=== PATIENT | female | born 1960 | race Caucasian/White ===

== ENCOUNTER 2020-11-27 16:34 | Outpatient (REF) | payer OTHER, SELFPAY ==
[2020-11-30 16:02] LABS: HPV mRNA E6/E7 Not Detected (Not Detected)
== END 2020-11-27 16:35 | disposition home or self-care (01) ==
LOC: HO.LNP 16:34
PROVIDERS: Visit Provider Internal Medicine
DX: Z12.4 Encounter for screening for malignant neoplasm of cervix (principal)
CPT/HCPCS: 87624; 88142

== ENCOUNTER 2021-08-24 08:47 | Outpatient (REF) | payer OTHER, SELFPAY ==
[2021-08-24 11:41] LABS: Appearance Urine CLEAR; Color Urine YELLOW; Glucose Urine UA NEG (NEG); Leukocyte Esterase Urine 1+ (NEG); Nitrite Urine NEG (NEG); PH 6.5 (5.0-8.0); Specific Gravity - Urine 1.015 (1.005-1.025); Urine Blood NEG (NEG); Urine Ketones NEG (NEG); Urine Protein NEG (NEG-TRACE)
[2021-08-24 11:44] LABS: Hematocrit 41.2 % (37.0-47.0); Hemoglobin 13.6 g/dl (12.0-16.0); Mean Corpuscular Hemoglobin 30.9 pg (27.0-33.0); Mean Corpuscular Volume 93.6 fL (80.0-98.0); Mean Platelet Volume 11.3 fL (9.4-12.3); Platelet Count 253 X10*3/uL (160-400); Red Cell Distribution Width 13.2 % (11.0-16.0); White Blood Count 5.2 X10*3/uL (4.8-10.8)
[2021-08-24 12:06] LABS: Estimated Average Glucose 117 mg/dL; Hemoglobin A1c % 5.7 %
[2021-08-24 12:10] LABS: Mucus Urine TRACE /LPF; Squamous Epithelial Cell Urine TRACE /LPF
[2021-08-24 12:22] LABS: Alanine Aminotransferase 22 U/L (0-31); Albumin Level 4.3 g/dL (3.5-5.0); Alkaline Phosphatase 85 U/L (39-117); Anion Gap 11 (12-20); Aspartate Amino Transferase 22 U/L (5-31); Bilirubin Total 0.4 mg/dL (0.0-1.0); Blood Urea Nitrogen 17 mg/dL (9-16); Calcium 9.3 mg/dL (8.4-10.2); Carbon Dioxide 30 mmol/L (22-29); Chloride 105 mmol/L (96-108); Cholesterol 264 mg/dL; Estimated Glomerular Filt Rate > 60; Glucose Fasting 93 mg/dL (60-99); HDL Cholesterol 70 mg/dL; LDL Cholesterol Calculated 183 mg/dl; Sodium 141 mmol/L (135-145); Total Protein 7.1 g/dL (6.5-8.0); Triglycerides 59 mg/dL
== END 2021-08-24 08:48 | disposition home or self-care (01) ==
LOC: HO.HMGCLDS 08:47
PROVIDERS: PCP Internal Medicine; Visit Provider Internal Medicine
DX: Z00.00 Encounter for general adult medical examination without abnormal findings (principal); M25.50 Pain in unspecified joint; M85.80 Other specified disorders of bone density and structure, unspecified site
CPT/HCPCS: 36415; 80053; 80061; 81001; 83036; 85027; 86431

== ENCOUNTER 2022-05-16 13:52 | Outpatient (REF) | payer OTHER, SELFPAY ==
--- NOTE | ~2022-05-16 | US_ITS ---
EXAMINATION: US PELVIS CLINICAL INFORMATION: Postmenopausal bleeding. COMPARISON: None TECHNIQUE: Ultrasound of the pelvis is performed using both transabdominal and transvaginal transducers along with Doppler. Transvaginal imaging is performed due to inadequate visualization transabdominally. FINDINGS: Uterus: The uterus is anteverted and measures 5.9 x 2.0 x 3.6 cm. The uterus is anteverted. The double wall endometrial thickness is 0.3 mm. The uterus is smooth in contour and has normal myometrial echogenicity. Tiny calcifications are seen within the lower uterine segment, possibly related to minute fibroids. No visible significant fibroid. Adnexa: Both ovaries are nonvisualized. There is no pelvic ascites or fluid collection. US/US pelvic and transvaginal IMPRESSION: The bilateral ovaries are nonvisualized. The examination is otherwise unremarkable.
== END 2022-05-16 13:53 | disposition home or self-care (01) ==
LOC: HO.HMGCX 13:52
PROVIDERS: Visit Provider Internal Medicine
DX: N95.0 Postmenopausal bleeding (principal)
CPT/HCPCS: 76830; 76856

== ENCOUNTER 2023-07-15 12:31 | Outpatient (AMB) | payer OTHER, SELFPAY ==
[2023-07-15 12:32] VITALS: BP 106/62; PULSE 67; O2SAT 100
--- NOTE | 2023-07-15 12:32 | A.OFFPC_ITS ---
Vital Signs 07/15/23 12:32 Height 5 ft 3 in Weight 113 lb BMI 20.0 BP 106/62 Blood Pressure Location Lt brachial Position Sitting Pulse 67 Pulse Source Pulse Oximeter Pulse Oximetry (%) 100 Oxygen Delivery Method Room Air Intake Visit Reasons: 3 month follow up Intake Note: Pt is here today for 3 months follow up visit on labs. Allergies pravastatin Adverse Reaction (Unknown, Verified 04/07/23 13:12) body pain Medication List - Last Reconciled 07/15/23 by Lavonne Bass MD alirocumab (Praluent Pen) 75 mg subcut Q2W aspirin 81 mg PO DAILY baclofen 10 mg PO BEDTIME celecoxib 200 mg PO DAILY flash glucose scanning reader (TDI BasslineStyle Gia 2 [place]) 3 As directed flash glucose sensor (FreeStyle Gia 2 Sensor kit) As directed flu vac qs 2019-(4 yr up) CD mL IM lorazepam 0.5 mg PO DAILY PRN metoprolol succinate ER 12.5 mg (1/2 x 25 mg) PO DAILY rosuvastatin 40 mg PO DAILY semaglutide (Ozempic) 0.5 mg (0.736 mL) subcut QWEEK Tobacco use date assessed: 04/07/23 Dental Screening Dental Screen Date: 07/15/23 Did you have a dental visit in the last 12 months?: Yes Did you have a dental problem in the last 6 months where you did not have access to dental care?: No Was dental information given to patient?: Patient has dentist HPI 3 month follow up HPI Details Pt presents for the follow-up on type 2 diabetes hyperlipidemia cor onary artery disease stable on current medications. 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 Mother No problems noted. Son No problems noted. Daughter No problems noted. Social History Housing: House Alcohol intake: current Alcohol intake frequency: a few times a month Patient Tobacco Use Status: Never used Tobacco e-Cigarette/Vaping Use: Never Used Current occupational status: employed Cognitive needs: No Hearing needs: No Vision needs: Yes Questionnaire Thrive Questionnaire Date Thrive assessed: 11/28/21 JOSH-7 AMB Questionnaire JOSH-7 Date JOSH - 7 assessed: 11/28/21 Source: Developed by Drs. Douglas Fragoso, Sindy Hines, Roger Burgess and colleagues, with an educational dee dee from [employer]. Review of Systems Const All systems reviewed & are unremarkable except as noted in HPI and below Reports no additional complaints Eyes Reports no additional complaints ENT Reports no additional complaints Card Reports no additional complaints Resp Reports no additional complaints GI Reports no additional complaints Reports no additional complaints Physical exam (Primary Care) Vital Signs: Last Vital Signs Pulse 67 07/15/23 12:32 BP 106/62 07/15/23 12:32 Pulse Ox 100 07/15/23 12:32 Oxygen Delivery Method Room Air 07/15/23 12:32 BMI result Body Mass Index 20.0 Tobacco/Smoking Status: Tobacco use Status Tobacco use date assessed 04/07/23 07/15/23 12:34 Patient Tobacco Use Status Never used Tobacco 07/15/23 12:34 e-Cigarette/Vaping Use Never Used 07/15/23 12:34 Thrive Assessment: Date of Thrive Assessment Date Thrive assessed 11/28/21 07/15/23 12:34 Const General: no acute distress Neck Neck: Yes no lymphadenopathy and Yes supple Resp Effort & Inspection: normal respiratory effort Auscultation: clear to auscultation bilaterally Cardio Rhythm: regular rhythm Heart sounds: S1 normal heart sound present and S2 normal heart sound present GI Inspection: Yes normal to inspection Palpation (GI): Soft to palpation Percussion: Yes normal to percussion Auscultation: normal bowel sounds Assessment and Plan Assessment & Plan (1) DM type 2 (diabetes mellitus, type 2): Code(s): E11.9 - Type 2 diabetes mellitus without complications Plan: A1c is 5.5 continue current treatment ADA diet and regular exercise follow-up in 6 months (2) CAD (coronary artery disease): Comment: 2 KATHI stents in mid LCx , balloon OM 1, 2 at [facility], f/u cadiology Code(s): I25.10 - Atherosclerotic heart disease of [place] coronary artery without angina pectoris Plan: Continue current medications (3) Hyperlipidemia: Comment: Not at goal at the maximum dose of Crestor Code(s): E78.5 - Hyperlipidemia, unspecified Plan: Patient will decrease Crestor to 20 mg a day and continue Praluent, check lipid profile in 3 months (4) H/O colonoscopy: Comment: 05/11 Dr. Merry burns , recheck in 10 yrs Code(s): Z98.890 - Other specified postprocedural states Orders: Orders Comprehensive [place]. Panel Fast 3 Months E11.9 - Type 2 diabetes mellitus without complications, E78.5 - Hyperlipidemia, unspecified, I25.10 - Atherosclerotic heart disease of [place] coronary artery without angina pectoris, Z98.890 - Other specified postprocedural states Lipid Panel 3 Months E11.9 - Type 2 diabetes mellitus without complications, E78.5 - Hyperlipidemia, unspecified, I25.10 - Atherosclerotic heart disease of [place] coronary artery without angina pectoris, Z98.890 - Other specified postprocedural states Complete Blood Count Auto Diff 3 Months E11.9 - Type 2 diabetes mellitus without complications, E78.5 - Hyperlipidemia, unspecified, I25.10 - Atherosclerotic heart disease of [place] coronary artery without angina pectoris, Z98.890 - Other specified postprocedural states Hemoglobin A1c 3 Months E11.9 - Type 2 diabetes mellitus without complications, E78.5 - Hyperlipidemia, unspecified, I25.10 - Atherosclerotic heart disease of [place] coronary artery without angina pectoris, Z98.890 - Other specified postp rocedural states CT Coronary Calcium Score Today Comprehensive [place]. Panel Fast 6 Months E11.9 - Type 2 diabetes mellitus without complications, E78.5 - Hyperlipidemia, unspecified, I25.10 - Atherosclerotic heart disease of [place] coronary artery without angina pectoris Lipid Panel 6 Months E11.9 - Type 2 diabetes mellitus without complications, E78.5 - Hyperlipidemia, unspecified, I25.10 - Atherosclerotic heart disease of [place] coronary artery without angina pectoris Hemoglobin A1c 6 Months E11.9 - Type 2 diabetes mellitus without complications, E78.5 - Hyperlipidemia, unspecified, I25.10 - Atherosclerotic heart disease of [place] coronary artery without angina pectoris Complete Blood Count Auto Diff 6 Months E11.9 - Type 2 diabetes mellitus without complications, E78.5 - Hyperlipidemia, unspecified, I25.10 - Atherosclerotic heart disease of [place] coronary artery without angina pectoris Medications: New rosuvastatin 20 mg PO DAILY 90 tabs 1RF blood-glucose sensor (FreeStyle Gia 3 Sensor device) As directed 6 ea 3RF Changed From semaglutide (Ozempic) 0.5 mg (0.736 mL) subcut QWEEK 9 mL 3RF To semaglutide (Ozempic) 0.5 mg (0.736 mL) subcut QWEEK 8.832 mL 3RF 84 days Refilled metoprolol succinate ER 12.5 mg (1/2 x 25 mg) PO DAILY 45 tabs 3RF alirocumab (Praluent Pen) 75 mg subcut Q2W 6 mL 3RF flash glucose sensor (FreeStyle Gia 2 Sensor kit) As directed 6 ea 3RF Coding Level of Care Code Est Pt Level 4 (17849) Diagnoses DM type 2 (diabetes mellitus, type 2) E11.9 CAD (coronary artery disease) I25.10 Hyperlipidemia E78.5 H/O colonoscopy Z98.890
== END 2023-07-15 13:08 | disposition home or self-care (01) ==
PROVIDERS: PCP Internal Medicine; Visit Provider Internal Medicine
DX: E11.9 Type 2 diabetes mellitus without complications (principal); I25.10 Atherosclerotic heart disease of native coronary artery without angina pectoris; E78.5 Hyperlipidemia, unspecified; Z98.890 Other specified postprocedural states
CPT/HCPCS: 99214

== ENCOUNTER 2024-05-10 13:24 | Outpatient (AMB) | payer OTHER, SELFPAY ==
[2024-05-10 13:27] VITALS: BP 106/66; PULSE 72; O2SAT 99; BMI 19.7
--- NOTE | 2024-05-10 13:27 | MHC.PC.OV ---
Vital Signs 05/10/24 13:27 Height 5 ft 3 in Weight 111 lb BMI 19.7 BP 106/66 Blood Pressure Location Lt brachial Position Sitting Pulse 72 Pulse Source Pulse Oximeter Pulse Oximetry (%) 99 Oxygen Delivery Method Room Air Intake Visit Reasons: PE reschd from 04/13/24 Intake Note: Pt is here today for PE. Allergies pravastatin Adverse Reaction (Unknown, Verified 05/10/24 13:30) body pain Medication List - Last Reconciled 05/10/24 by Lavonne Bass MD alirocumab (Praluent Pen) 75 mg subcut Q2W aspirin 81 mg PO DAILY baclofen 10 mg PO BEDTIME blood-glucose sensor (Bit Stew SystemsStyle Gia 3 Sensor device) As directed celecoxib 200 mg PO DAILY flash glucose scanning reader (FreeStyle Gia 2 [place]) 3 As directed flash glucose sensor (FreeStyle Gia 2 Sensor kit) As directed flu vac qs (4 yr up) CD mL IM lorazepam 0.5 mg PO DAILY PRN metoprolol succinate ER 12.5 mg (1/2 x 25 mg) PO DAILY rosuvastatin 20 mg PO DAILY semaglutide (Ozempic) 0.5 mg (0.736 mL) subcut QWEEK zolpidem (Ambien) 5 mg PO BEDTIME PRN Tobacco use date assessed: 05/10/24 Fall risk assessment: No Falls in past year Last assessed Fall Risk: 05/10/24 Dental Screening Dental Screen Date: 05/10/24 Did you have a dental visit in the last 12 months?: Yes Did you have a dental problem in the last 6 months where you did not have access to dental care?: No Was dental information given to patient?: Patient has dentist HPI PE reschd from 04/13/24 HPI Details Patient presents for physical PFS Medical History CAD (coronary artery disease) Angina of effort Exertional chest pain Spinal stenosis at L4-L5 level Hyperlipidemia Trochanteric bursitis Bursitis Skin abnormalities Annual physical exam Hip pain Sciatica Arthralgia Rheumatoid factor positive Osteopenia Degenerative joint disease (DJD) of lumbar spine Surgical History H/O rotator cuff surgery H/O colonoscopy No pertinent past surgical history Family History Father No problems noted. Mother No problems noted. Son No problems noted. Daughter No problems noted. Social History Housing: House Alcohol intake: current Alcohol intake frequency: a few times a month Patient Tobacco Use Status: Never used Tobacco e-Cigarette/Vaping Use: Never Used service: No Current occupational status: employed Cognitive needs: No Hearing needs: No Vision needs: Yes Questionnaire PHQ-9 Over the last 2 weeks, how often have you been bothered by any of the following problems? 1. Little interest or pleasure in doing things: not at all 2. Feeling down, depressed, or hopeless: not at all 3. Trouble falling or staying asleep, or sleeping too much: not at all 4. Feeling tired or having little energy: not at all 5. Poor appetite or overeating: not at all 6. Feeling bad about yourself - or that you are a failure or have let yourself or your family down: not at all 7. Trouble concentrating on things, such as reading the newspaper or watching television: not at all 8. Moving or speaking so slowly that other people could have noticed. Or the opposite - being so fidgety or restless that you have been moving around a lot more than usual: not at all 9. Thoughts that you would be better off or of hurting yourself in some way: not at all Total score: 0 Depression Screening Interpretation: Negative Depression Screening Done: Yes Source: Developed by Drs. Douglas Fragoso, Sindy Hines, Roger Burgess and colleagues, with an educational dee dee from [employer]. Thrive Questionnaire Date Thrive assessed: 05/10/24 I am a: Patient What is your living situation today?: I have a steady place to live Within the past 12 months, did the food you bought not last and you didn't have the money to get more?: Never true Within the past 12 months, did you worry whether your food would run out before you got money to buy more?: Never true Do you have trouble paying for medicines?: No Do you have trouble getting transportation to medical appointments?: No Do you have trouble paying your heating and electricity bill?: No Do you have trouble taking care of your child, family member or friend?: No Do you have trouble with day-to-day activities such as bathing, preparing meals, shopping, managing finances, etc.?: No Are you currently unemployed and looking for a job?: No Are you interested in more education?: No Please select the resources that you would like help with: Housing/Correction Currently or been in a relationship where the following occur: No concerns reported THRIVE Score: 0 AUDIT C Alcohol Use Questionnaire (AUDIT-C) 1. How often do you have a drink containing alcohol?: 2-4 times a month 2. How many drinks containing alcohol do you have on a typical day when you are drinking?: 1 or 2 3. How often do you have six or more drinks on one occasion?: Never Total Score: 2 JOSH-7 AMB Questionnaire JOSH-7 Date JOSH - 7 assessed: 05/10/24 Feeling nervous, anxious, or on edge: 0 = Not at all Not being able to stop or control worryin = Not at all Worrying too much about different things: 0 = Not at all Trouble relaxin = Not at all Being so restless that it is hard to sit still: 0 = Not at all Becoming easily annoyed or irritable: 0 = Not at all Feeling afraid as if something awful might happen: 0 = Not at all Total JOSH-7 score (0-4 normal; 5-9 mild; 10-14 moderate; 15-21 severe): 0 Source: Developed by Drs. Douglas Fragoso, Sindy Hines, Roger Burgess and colleagues, with an educational dee dee from [employer]. Review of Systems Const All systems reviewed & are unremarkable except as noted in HPI and below ENT Reports no additional complaints Card Reports no additional complaints Resp Reports no additional complaints GI Reports no additional complaints Reports no additional complaints Physical exam (Primary Care) Vital Signs: Last Vital Signs Pulse 72 05/10/24 13:27 BP 106/66 05/10/24 13:27 Pulse Ox 99 05/10/24 13:27 Oxygen Delivery Method Room Air 05/10/24 13:27 BMI result Body Mass Index 19.7 Tobacco/Smoking Status: Tobacco use Status Tobacco use date assessed 05/10/24 05/10/24 13:33 Patient Tobacco Use Status Never used Tobacco 05/10/24 13:33 e-Cigarette/Vaping Use Never Used 05/10/24 13:27 PHQ-9: PHQ-9 Score PHQ-9: Total score 0 05/10/24 13:35 Depression Screening Interpretation: Negative Thrive Assessment: Date of Thrive Assessment Date Thrive assessed 05/10/24 05/10/24 13:35 Currently or been in a relationship where the following occur: No concerns reported Const General: no acute distress HENMT Head: Yes normal to inspection Ears: hearing grossly normal bilaterally Face and sinus: Yes normal facial exam Eyes General: appearance normal, both eyes and all related structures Neck Neck: Yes no lymphadenopathy and Yes supple Resp Effort & Inspection: normal respiratory effort Auscultation: clear to auscultation bilaterally Cardio Rhythm: regular rhythm Heart sounds: S1 normal heart sound present and S2 normal heart sound present GI Inspection: Yes normal to inspection Palpation (GI): Soft to palpation Percussion: Yes normal to percussion Auscultation: normal bowel sounds Assessment and Plan Assessment & Plan (1) DM type 2 (diabetes mellitus, type 2): Code(s): E11.9 - Type 2 diabetes mellitus without complications Plan: A1c was 5.7 in January, ADA diet regular physical activity discussed with the patient Ozempic will be increased to 1 mg weekly and patient will continue to monitor her glucose by Gia 2 (2) CAD (coronary artery disease): Comment: 2 KATHI stents in mid LCx , balloon OM 1, 12/10/21 at [facility], f/u cadiology Code(s): I25.10 - Atherosclerotic heart disease of [place] coronary artery without angina pectoris Plan: Continue current medications follow-up with Cardiology (3) Hyperlipidemia: Comment: Not at goal at the maximum dose of Crestor Code(s): E78.5 - Hyperlipidemia, unspecified Plan: Patient has been taking Praluent and Crestor have lipid profile checked (4) Osteopenia: Comment: DEXA 08/2016 Code(s): M85.80 - Other specified disorders of bone density and structure, unspecified site Plan: Check DEXA, continue vitamin-D and regular exercise Orders: Orders Comprehensive [place]. Panel Fast Today E11.9 - Type 2 diabetes mellitus without complications, E78.5 - Hyperlipidemia, unspecified, I25.10 - Atherosclerotic heart disease of [place] coronary artery without angina pectoris Hemoglobin A1c 6 Months E11.9 - Type 2 diabetes mellitus without complications, E78.5 - Hyperlipidemia, unspecified, I25.10 - Atherosclerotic heart disease of [place] coronary artery without angina pectoris Complete Blood Count Auto Diff 6 Months E11.9 - Type 2 diabetes mellitus without complications, E78.5 - Hyperlipidemia, unspecified, I25.10 - Atherosclerotic heart disease of [place] coronary artery without angina pectoris Lipid Panel Today E11.9 - Type 2 diabetes mellitus without complications, E78.5 - Hyperlipidemia, unspecified, I25.10 - Atherosclerotic heart disease of [place] coronary artery without angina pectoris Hemoglobin A1c Today E11.9 - Type 2 diabetes mellitus without complications, E78.5 - Hyperlipidemia, unspecified, I25.10 - Atherosclerotic heart disease of [place] coronary artery without angina pectoris Microalbumin, Random (w Creat) Today E11.9 - Type 2 diabetes mellitus without complications, E78.5 - Hyperlipidemia, unspecified, I25.10 - Atherosclerotic heart disease of [place] coronary artery without angina pectoris Complete Blood Count Auto Diff Today E11.9 - Type 2 diabetes mellitus without complications, E78.5 - Hyperlipidemia, unspecified, I25.10 - Atherosclerotic heart disease of [place] coronary artery without angina pectoris XR DEXA axial skeleton Today M85.80 - Other specified disorders of bone density and structure, unspecified site Comprehensive [place]. Panel Fast 6 Months E11.9 - Type 2 diabetes mellitus without complications, E78.5 - Hyperlipidemia, unspecified, I25.10 - Atherosclerotic heart disease of [place] coronary artery without angina pectoris Lipid Panel 6 Months E11.9 - Type 2 diabetes mellitus without complications, E78.5 - Hyperlipidemia, unspecified, I25.10 - Atherosclerotic heart disease of [place] coronary artery without angina pectoris Medications: New Ozempic (semaglutide) 1 mg (0.75 mL) subcut QWEEK 9 mL 3RF NS Refilled zolpidem (Ambien) 5 mg PO BEDTIME PRN 30 tabs 0RF insomnia metoprolol succinate ER 12.5 mg (1/2 x 25 mg) PO DAILY 45 tabs 3RF alirocumab (Praluent Pen) 75 mg subcut Q2W 6 mL 3RF Discontinued semaglutide (Ozempic) Discontinued Reason: Doctor's Order 0.5 mg (0.736 mL) subcut QWEEK 9 mL 3RF Coding Level of Care Code Est Pt Prev Care 40-64y(18011) Diagnoses DM type 2 (diabetes mellitus, type 2) E11.9 CAD (coronary artery disease) I25.10 Hyperlipidemia E78.5 Osteopenia M85.80
== END 2024-05-10 15:37 | disposition home or self-care (01) ==
PROVIDERS: PCP Internal Medicine; Visit Provider Internal Medicine
DX: Z00.00 Encounter for general adult medical examination without abnormal findings (principal); E11.9 Type 2 diabetes mellitus without complications; I25.10 Atherosclerotic heart disease of native coronary artery without angina pectoris; E78.5 Hyperlipidemia, unspecified; M85.80 Other specified disorders of bone density and structure, unspecified site
CPT/HCPCS: 99396

== ENCOUNTER 2024-07-08 09:05 | Outpatient (REF) | payer OTHER, SELFPAY ==
[2024-07-08 10:10] LABS: MANUAL DIFF FLAG NO
[2024-07-08 10:26] LABS: Basophils Percent Auto 0.3 % (0-2); Eosinophils Absolute Auto 0.1 X10*3/uL (0.0-0.4); Hematocrit 38.9 % (37.0-47.0); Hemoglobin 13.1 g/dl (12.0-16.0); Imm Gran Abs Auto 0.02 X10*3/uL (0.00-0.03); Imm Gran Pct Auto 0.3 % (0.0-0.4); Lymphocytes Absolute Auto 1.6 X10*3/uL (1.2-4.9); Lymphocytes Percent Auto 26.7 % (20-40); Mean Corpuscular HGB Conc 33.7 g/dl (31.0-35.0); Mean Corpuscular Hemoglobin 31.2 pg (27.0-33.0); Mean Corpuscular Volume 92.6 fL (80.0-98.0); Mean Platelet Volume 10.4 fL (9.4-12.3); Monocytes Absolute Auto 0.5 X10*3/uL (0.1-1.2); Monocytes Percent Auto 8.8 % (2-11); Neutrophils Absolute Auto 3.8 x10*3/uL (2.0-8.3); Neutrophils Percent Auto 61.9 % (45-73); Platelet Count 244 X10*3/uL (160-400); Red Cell Distribution Width 12.9 % (11.0-16.0); White Blood Count 6.2 X10*3/uL (4.8-10.8)
[2024-07-08 10:35] LABS: Estimated Average Glucose 108 mg/dL; Hemoglobin A1c % 5.4 % (<6.0)
[2024-07-08 10:58] LABS: Creatinine Urine 94.79 mg/dL; Microalbum/Creatinine Ratio Ur 17.9 ug/mg cr (<30)
[2024-07-08 11:04] LABS: Alanine Aminotransferase 19 U/L (0-31); Albumin Level 4.1 g/dL (3.5-5.0); Alkaline Phosphatase 65 U/L (39-117); Anion Gap 8 (12-20); Aspartate Amino Transferase 20 U/L (5-31); Bilirubin Total 0.5 mg/dL (0.0-1.0); Blood Urea Nitrogen 13 mg/dL (9-16); Calcium 9.6 mg/dL (8.4-10.2); Carbon Dioxide 31 mmol/L (22-29); Chloride 106 mmol/L (96-108); Cholesterol 105 mg/dL (<200); Estimated Glomerular Filt Rate > 60; Glucose Fasting 84 mg/dL (60-99); HDL Cholesterol 67 mg/dL (>40); LDL Cholesterol Calculated 31 mg/dL (<100); Sodium 141 mmol/L (135-145); Triglycerides 35 mg/dL (<150)
== END 2024-07-08 09:06 | disposition home or self-care (01) ==
LOC: HO.HMGCLDS 09:05
PROVIDERS: PCP Internal Medicine; Visit Provider Internal Medicine
DX: E11.9 Type 2 diabetes mellitus without complications (principal); I25.10 Atherosclerotic heart disease of native coronary artery without angina pectoris; E78.5 Hyperlipidemia, unspecified; Z98.890 Other specified postprocedural states
CPT/HCPCS: 36415; 80053; 80061; 82043; 82570; 83036; 85025

== ENCOUNTER 2024-10-18 13:54 | Outpatient (AMB) | payer OTHER, SELFPAY ==
--- OUTSIDE RECORDS SUMMARY | 2024-10-18 13:56 | XMS_ITS | Continuity of Care Document ---
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 Refills 3, Maintenance, 12/11/21 10:31:00 AM EST, Route to Pharmacy Electronically, [facility], Partial fill upon patient request if the prescription is for a schedule II opioid drug., 161, cm, 12/11/21 9:29:00 EST, Height, 58, kg, 12/08/21 0:57:00 EST, Dry Weight Start Date: 12/11/21 Status: Ordered Quantity: 30.0 Unit: tablet Repeat number: 4 biotin biotin, 10,000 mcg, By Mouth, Daily, Refills 0, Maintenance, 07/17/20 4:05:00 PM EDT, Supply Start Date: 07/17/20 Status: Ordered Repeat number: 1 Co Q-10 = 300 mg, By Mouth, Daily, 0 Refills, Maintenance, 12/07/21 8:48:00 PM EST, Partial fill upon patient request if the prescription is for a schedule II opioid drug. Start Date: 12/07/21 Status: Ordered Repeat number: 1 Melatonin = 10 mg, By Mouth, Daily at bedtime, 0 Refills, Maintenance, 07/17/20 4:06:00 PM EDT Start Date: 07/17/20 Stop Date: 01/06/22 Status: Ordered Repeat number: 1 metoprolol 25 mg oral tablet 12.5 mg, 0.5, tablet, By Mouth, Daily, # 180 tablet, Refills 0, Maintenance, 01/28/23 12:21:00 PM EDT, Partial fill upon patient request if the prescription is for a schedule II opioid drug. Start Date: 01/28/23 Status: Ordered Quantity: 180.0 Unit: tablet Repeat number: 1 Multivitamin By Mouth, Daily, 0 Refills, Maintenance, 01/22/10 4:03:08 PM EDT Start Date: 01/22/10 Status: Ordered Repeat number: 1 rosuvastatin 20 mg oral tablet 1 tablet = 20 mg, By Mouth, Daily, # 30 tablet, 3 Refills, Maintenance, 12/11/21 10:31:00 AM EST, Tablet, [facility], Partial fill upon patient request if the prescription is for a schedule II opioid drug., 161, cm, 12/11/21 9:29:00 EST, Height, 58, kg, 12/08/21 0:57:00 EST, Dry Weight Start Date: 12/11/21 Status: Ordered Quantity: 30.0 Unit: tablet Repeat number: 4 vitamin d vitamin d, 2,000 units, By Mouth, Daily, Refills 0, Maintenance, 07/17/20 4:05:00 PM EDT, Supply Start Date: 07/17/20 Status: Ordered Repeat number: 1 Problem List Condition Confirmation Course Effective Dates Status [facility] Informant Chronic back pain Confirmed Active Osteopenia Confirmed Active UI - Urinary incontinence Confirmed Active Social History Social History Type Response Smoking Status Never smoker entered on: 12/24/17 Sex Sex Representation Female (finding) Patient Care team information Care Team Personnel Name: Lavonne Bass MD Position: [facility] Physician - Primary Care Member Role: PCP Address: [address], [place] [id number] Telecom: Name: Evan Cross RN Position: [facility] RN Member Role: Primary Care Nurse Name: Lee ROBLES, Traci Tello Position: [facility] Outreach Member Role: Lifetime Consulting Physician Address: [address] [place] [phone] [place] Telecom: Name: Audrey Woodson LPN Position: [facility] AMB Nurse Member Role: Primary Care Nurse Care Team Related Persons Name: ABHAY FISHER Insurance Providers Guarantor name: NICO [facility] Information #: 1 Payer: [employer] Member Number: NA Policy Number: NA Group Number: NA
--- OUTSIDE RECORDS SUMMARY | 2024-10-18 13:57 | XMS_ITS ---
Author Organization [employer] Address [address] [place] [phone] Care Team Providers Care Geothermal Hvac Technician Name Role Phone TRACI HOWARD Primary Care Provider ALLERGIES No Known Allergies RESULTS Component Value Reference Range Notes ANALYZER(TM)FERMIN, IFA WITH RE FLEX TITER/PATTERN, SYSTEMIC AUTOIMMUNE PANEL 1 ([id number]) Reviewed date:03/31/2024 01:40:01 PM Interpretation: Performing Lab:EZ, [email or web address],[address] [facility] Brittni Zamarripa MD,PhD,ASHLEY Notes/Report: NON-FASTING; NON-FASTING FERMIN SCREEN, IFA NEGATIVE NEGATIVE FERMIN IFA is a first line screen for detecting the presence of up to approximately 150 autoantibodies in various autoimmune diseases. A negative FERMIN IFA result suggests an FERMIN-associated autoimmune disease is not present at this time, but is not definitive. If there is high clinical suspicion for Sjogren's syndrome, testing for anti-SS-A/Ro antibody should be considered. Anti-Amna-1 antibody should be considered for clinically suspected inflammatory myopathies. AC-0: Negative International Consensus on FERMIN Patterns https://doi.org/10.1515/cclm -2945-8835 For additional information, please refer to http://education.BFKWo 3dplusme.com/faq/VIT404 (This link is being provided for information/educational purposes only.) DNA AB (DS) CRITHIDIA,IFA NEGATIVE NEGATIVE CHROMATIN (NUCLEOSOMAL) ANTIBODY <1.0 NEG <1.0 NEGATIVE AI SM ANTIBODY <1.0 NEG <1.0 NEGATIVE AI SM/FOOD CRITIC ANTIBODY <1.0 NEG <1.0 NEGATIVE AI FOOD CRITIC ANTIBODY <1.0 NEG <1.0 NEGATIVE AI SJOGREN'S ANTIBODY (SS-A) <1.0 NEG <1.0 NEGATIVE A I SJOGREN'S ANTIBODY (SS-B) <1.0 NEG <1.0 NEGATIVE A I SCL-70 ANTIBODY <1.0 NEG <1.0 NEGATIVE AI AMNA-1 ANTIBODY <1.0 NEG <1.0 NEGATIVE AI CENTROMERE B ANTIBODY <1.0 NEG <1.0 NEGATIVE AI COMPLEMENT COMPONENT C3C 120 83-193 mg/dL COMPLEMENT COMPONENT C4C 21 15-57 mg/dL CARDIOLIPIN AB (IGA) 4.7 Value Interpretation ----- <20.0 Antibody not detected > or = 20.0 Antibody detected CARDIOLIPIN AB (IGG) <2.0 Value Interpretation ----- <20.0 Antibody not detected > or = 20.0 Antibody detected CARDIOLIPIN AB (IGM) <2.0 Value Interpretation ----- <20.0 Antibody not detected > or = 20.0 Antibody detected B2 GLYCOPROTEIN I (IGA)AB 3.9 Value Interpretation ----- <20.0 Antibody not detected > or = 20.0 Antibody detected B2 GLYCOPROTEIN I (IGG)AB <2.0 Value Interpretation ----- <20.0 Antibody not detected > or = 20.0 Antibody detected B2 GLYCOPROTEIN I (IGM)AB <2.0 The antiphospholipid antibody syndrome (APS) is a clinical-pathologic correlation that includes a clinical event (e.g. arterial or venous thrombosis, morbidity) and persistent positive antiphospholipid antibodies (IgM, IgG Cardiolipin or b2GPI antibodies greater than the 99th percentile; or a lupus anticoagulant). International consensus guidelines for APS suggest waiting at least 12 weeks before retesting to confirm antibody persistence. The Systemic Lupus International Collaborating [facility] immunological classification criteria for systemic lupus erythematosus (SLE) include testing for isotype IgA, which has yet to be incorporated into APS criteria. Low level antiphospholipid antibodies may sometimes be detected in the setting of infection, drug therapy or aging. For additional information, please refer to http://education.[employer] Automotivediagno 3dplusme.com/faq/YCS679 (This link is being provided for informational/educational purposes only.) Value Interpretation ----- <20.0 Antibody not detected > or = 20.0 Antibody detected RHEUMATOID FACTOR (IGA) 9 Reference Range: <=6 NEGATIVE >6 POSITIVE RHEUMATOID FACTOR (IGG) 6 Reference Range: <=6 NEGATIVE >6 POSITIVE RHEUMATOID FACTOR (IGM) 12 Reference Range: <=6 NEGATIVE >6 POSITIVE CYCLIC CITRULLINATED PEPTIDE (CCP) AB (IGG) <16 Reference Range: NEGATIVE: <20 WEAK POSITIVE: 20-39 MODERATE POSITIVE: 40-59 STRONG POSITIVE >59 MUTATED CITRULLINATED VIMENTIN (MCV) AB <20 <20 U/mL Anti-mutated citrullinated vimentin antibody may be used as a second-line marker of rheumatoid arthritis, in addition to rheumatoid factor and anti-cyclic citrullinated peptide (CCP). THYROID PEROXIDASE ANTIBODIES 1 <9 IU/mL DEMENTIA PANEL, RESTORE() ([id number]) Reviewed date:03/22/2024 12:20:02 PM Interpretation: Performing Lab:NL2, [email or web address] [address] [place], [place] [id number] Alva Alexander Notes/Report: NON-FASTING; NON-FASTING GLUCOSE 89 65-99 mg/dL Fasting reference interval UREA NITROGEN (BUN) 17 7-25 mg/dL CREATININE 0.62 0.50-1.05 mg/dL EGFR 99 > OR = 60 mL/min/1.73m2 BUN/CREATININE RATIO SEE NOTE: 6-22 (calc) Not Reported: BUN and Creatinine are within reference range. SODIUM 137 135-146 mmol/L POTASSIUM 5.1 3.5-5.3 mmol/L CHLORIDE 102 98-110 mmol/L CARBON DIOXIDE 28 20-32 mmol/L CALCIUM 9.9 8.6-10.4 mg/dL PROTEIN, TOTAL 6.8 6.1-8.1 g/dL ALBUMIN 4.3 3.6-5.1 g/dL GLOBULIN 2.5 1.9-3.7 g/dL (calc) ALBUMIN/GLOBULIN RATIO 1.7 1.0-2.5 (calc) BILIRUBIN, TOTAL 0.5 0.2-1.2 mg/dL ALKALINE PHOSPHATASE 59 37-153 U/L AST 19 10-35 U/L ALT 17 6-29 U/L WHITE BLOOD CELL COUNT 4.7 3.8-10.8 Thousand/ uL RED BLOOD CELL COUNT 4.38 3.80-5.10 Million/uL HEMOGLOBIN 13.5 11.7-15.5 g/dL HEMATOCRIT 41.8 35.0-45.0 % MCV 95.4 80.0-100.0 fL MCH 30.8 27.0-33.0 pg MCHC 32.3 32.0-36.0 g/dL RDW 12.4 11.0-15.0 % PLATELET COUNT 244 140-400 Thousand/uL MPV 11.3 7.5-12.5 fL ABSOLUTE NEUTROPHILS 2834 1108-0330 cells/uL ABSOLUTE LYMPHOCYTES 9190 302-0230 cells/uL ABSOLUTE MONOCYTES 362 200-950 cells/uL ABSOLUTE EOSINOPHILS 80 15-500 cells/uL ABSOLUTE BASOPHILS 19 0-200 cells/uL NEUTROPHILS 60.3 LYMPHOCYTES 29.9 MONOCYTES 7.7 EOSINOPHILS 1.7 BASOPHILS 0.4 TSH 1.18 0.40-4.50 mIU/L VITAMIN B12 5357 241-0561 pg/mL FOLATE, SERUM >24.0 Reference Range Low: <3.4 Borderline: 3.4-5.4 Normal: >5.4 COMMENT If a patient with suspected dementia has a history of risk factors for sexually transmitted infections, blood testing for syphilis and human immunodeficiency virus (HIV) infection should be considered. For information on advanced diagnostic testing for dementia including Alzheimer's Disease please click on Frequently Asked Questions (FAQs) or visit the following link http://education.AfterSteps.[employer]/faq/FAQ88 Enhanced report to follow. REASON FOR VISIT F/U CHECK IN MEDICATIONS Medication SIG (Take, Route, Frequency, Duration) Notes Start Date End Date Status CoQ10 300mg QD Active FreeStyle Gia 3 Sensor - as directed for 90 days Active Rosuvastatin Calcium 20 MG 1 tablet Orally Once a day Active Metoprolol Succinate ER 25 MG 1 tablet Orally Once a day Takes 1/2 daily (12.5mg) Active Aspirin 81 81 MG 1 tablet Orally Once a day Active Baclofen 10 MG 1 tablet as needed Orally Twice a day Takes 1 QHS PRN Active Biotin 1 QD Active Vitamin D3 50 MCG (2000 UT) 1 capsule Orally Once a day Active Stress B Complex/Antioxid/Zinc - as directed Orally Active Melatonin 10 MG as directed Orally Active Alirocumab 75 MG/ML as directed Subcutaneous Active Ozempic (0.25 or 0.5 MG/DOSE) 2 MG/3ML as directed Subcutaneous Active SOCIAL HISTORY Tobacco Use: Social History Observation Description Date Details (start date - stop date) Never Smoker NA - NA Sex Assigned At : Social History Observation Description Sex Assigned At Unknown Tobacco Use/Smoking Question Answer Notes Tobacco use: nonsmoker Section Notes: Lives in [place] with hus band. Encounters Encounter Location Date Provider Diagnosis [address] [phone] 03/11/2024 TRACI HOWARD Encounter to discuss test results Z71.2 and Inflammatory polyarthropathy M06.4 ASSESSMENTS Encounter Date Diagnosis Assessment Notes Treatment Notes Treatment Clinical Notes Section Notes 03/11/2024 Encounter to discuss test results (ICD-10 - Z71.2) All labs were reviewed and the results were explained to the patient in detail. Total time with patient >30 minutes which includes education and coordination of care. 03/11/2024 Inflammatory polyarthropathy (ICD-10 - M06.4) PLAN OF TREATMENT Treatment Notes Assessment Notes Encounter to discuss test results All la bs were reviewed and the results were explained to the patient in detail. Total time with patient >30 minutes which includes education and coordination of care. Next Appt Details Follow Up: prn, Reason: will consider membership Progress Notes * NICO FISHERDOB:[birth year] (64 yo F)Acc No.[id number]:03/11/2024 Progress Note Patient:??INEZKIRK NICO Provider:??Traci Howard DNP :1960?Age:64 Y?Sex:Fe male Date:03/11/2024 Phone: Address:[address] [place] [phone] Subjective: * Chief Complaints: * ?F/U CHECK IN * HPI: ?Patient Care Team:?Ultrasound Tech:??Dr. Bonita Mclean @ [address] [place] [address].? Providers/Specialists: Dr. Booker - Retinal Specialist ?Dr. Nati Paz - Chiropractor. ?New Patient Visit:? The patient consents to HIPAA compliant telehealth visit using a real time video platform within our EHR. The provider is located in the office and the patient is in their home for the duration of the visit. ?Visit info:? Ncio presents by video today for a telehealth wellness check in. * ROS:?General / Constitutional:?Patient denies??change in appetite, fatigue, headache.?Allergy / Immunology:?Patient denies??congestion, cough, sneezing.?Ophthalmologic:?Patient denies??double vision, loss of vision.?ENT:?Patient denies??ear pain, hoarseness, nasal congestion, ringing in the ears, scratchy throat.?Respiratory:?Patient denies??chest pain, cough, shortness of breath, wheezing.?Cardiovascular:?Patient denies??chest pain, chest pain with exertion, difficulty laying flat, dyspnea on exertion.?Gastrointestinal:?Patient denies??abdominal pain, blood in stool, constipation, diarrhea, heartburn, nausea.?Musculoskeletal:?Patient denies??joint stiffness, leg swelling, muscle aches, neck pain.?Skin:?Patient denies??changing moles, dry skin.?Neurologic:?Patient denies??confusion, dizziness, headache, gait abnormality.?Psychiatric:?Patient denies??anxiety, loss of appetite, depressed mood.? 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 * Community Health Advocate History:?Menstrual history: ?Age of Menarche:??12 ?Age of Menopause:??45 ?Last pap smear date??2021 @ prior PCP, normal per pt..?Last mammogram date??2021 @ [facility], normal per pt..?? * OB History:? History:?Total pregnancies:??2 ?Full-term pregnancies:??2 * Surgical History:??Bilateral Carpal Tunnel 1998-2000Bunioinectomy & Hammer Toe 2007 & 2018Rt. Rotator Cuff Repair 2019Appendectomy 1972Tonsilectomy 1989Angioplasty w/2 Stents 2021 * Hospitalization/Major Diagno stic Procedure:??Angioplasty & 2 Stents @ [facility] 2021 * Family History:??Father: dec eased 65 yrs, CAD & CHF.??Mother: 86 yrs, Diabetes, Rheaumatoid Arthritis,.??Maternal Grandfather: , Diabetes.??Maternal Grandmother: , Unknown health history.??Brother: alive, No health concerns.??Sister: alive, MS, Spinal Tumor, Neuroma.??Sister #2: alive, No health concerns.??Sister #3: alive, No health concerns.??Sister #4: alive, No health concerns.??1 son(s) , 1 daughter(s) - healthy. .?? * Social History:?Tobacco Use:?Tobacco Use/Smoking?Tobacco use:??nonsmoker ?Drugs/Alcohol:?Do you drink alcohol?: Yes, Socially. ?Lives in [place] with . * Medications:??TakingAlirocum ab 75 MG/ML Solution Auto-injector as directed Subcutaneous Ozempic (0.25 or 0.5 MG/DOSE) 2 MG/3ML Solution Pen-injector as directed Subcutaneous Stress B Complex/Antioxid/Zinc - Tablet as directed Orally Melatonin 10 MG Capsule as directed Orally Baclofen 10 MG Tablet 1 tablet as needed Orally Twice a day , Notes to Pharmacist: Takes 1 QHS PRNBiotin , Notes to Pharmacist: 1 QDVitamin D3 50 MCG (1999 UT) Capsule 1 capsule Orally Once a day CoQ10 , Notes to Pharmacist: 300mg QDAspirin 81 81 MG Tablet Delayed Release 1 tablet Orally Once a day Rosuvastatin Calcium 20 MG Tablet 1 tablet Orally Once a day Metoprolol Succinate ER 25 MG Tablet Extended Release 24 Hour 1 tablet Orally Once a day , Notes to Pharmacist: Takes 1/2 daily (12.5mg)FreeStyle Gia 3 Sensor - Miscellaneous as directed Medication List reviewed and reconciled with the patientTaking Alirocumab 75 MG/ML Solution Auto-injector as directed Subcutaneous Taking Ozempic (0.25 or 0.5 MG/DOSE) 2 MG/3ML Solution Pen-injector as directed Subcutaneous Taking Stress B Complex/Antioxid/Zinc - Tablet as directed Orally Taking Melatonin 10 MG Capsule as directed Orally Taking Baclofen 10 MG Tablet 1 tablet as needed Orally Twice a day , Notes to Pharmacist: Takes 1 QHS PRNTaking Biotin , Notes to Pharmacist: 1 QDTaking Vitamin D3 50 MCG (2000 UT) Capsule 1 capsule Orally Once a day Taking CoQ10 , Notes to Pharmacist: 300mg QDTaking Aspirin 81 81 MG Tablet Delayed Release 1 tablet Orally Once a day Taking Rosuvastatin Calcium 20 MG Tablet 1 tablet Orally Once a day Taking Metoprolol Succinate ER 25 MG Tablet Extended Release 24 Hour 1 tablet Orally Once a day , Notes to Pharmacist: Takes 1/2 daily (12.5mg)Taking FreeStyle Gia 3 Sensor - Miscellaneous as directed Medication List reviewed and reconciled with the patient * Allergies:??N.K.D.A.no[Aller gies Verified] Objective: * Vitals:??BP: Not Taken - Tel [facility]. * Examination: ?General Examination: ?General appearance:??voice is clear, no distress noted, speaking in full sentences with good judgement and no audible SOB.?Neurologic:??alert and oriented.?Psych:??alert and oriented x 3, with good judgement and insight, speech is clear and coherent, thought process is logical and goal directed without suidical ideation or delusions.? Assessment: * Assessment: 1.??Inflammatory polyarthrop athy - M06.4 (Primary)??2.??Encounter to discuss test results - Z71.2?? Plan: * Treatment: 2.??Encounter to discuss fausto t results?? Notes: All labs were reviewed and the results were explained to the patient in detail. Total time with patient >30 minutes which includes education and coordination of care. ? * Labs:?? * ?Lab: DEMENTIA SHY NOYOLA() ([id number]) * Procedure Codes:?? * Preventive Medicine:?Last CPE: 2021 @ former PCP ?Last Pap; 2021 w/PCP, normal per pt. ?Mammo: Fall 2021 @ [facility] ?DEXA: q 2 years, due 2022 @ [address] ?Colonoscopy: Due 01/2023 @ [facility] ?Endoscopy: Yes, approx. 2009 GERD sx's, +for HPylor & treated ?Covid Vac: Yes & boosters ?Flu Vac: Yes ?PV: No Shingles: No. * Follow Up:??prn (Reason: jt l consider membership) * Billing Information: * Visit Code:?? 45387 Office Visit, Est Pt., Level 4. * Procedure Codes:?? * Sign off status: Completed true * Provider:??Traci Howard DNP Date:??0 03/11/2024 History and Physical Notes * HPI (History of Present Illness) Category Sub-Category Detail Notes Category Not es Patient Care Team Ultrasound Tech: Dr. Bonita Mclean @ [address] [place] [address] Providers/Specialist s: Dr. Booker - Retinal Specialist Dr. Nati Paz - Chiropractor Visit tammy Cantu presents by video today for a telehealth wellness check in. New Patient Visit The jose owens consents to HIPAA compliant telehealth visit using a real time video platform within our EHR. The provider is located in the office and the patient is in their home for the duration of the visit. Examination Category Sub-Category Detail Notes Category Not es General Examination General appearance: voice is clear, no distress noted, speaking in full sentences with good judgement and no audible SOB Neurologic: alert and oriented Psych: alert and oriented x 3, with good judgement and insight, speech is clear and coherent, thought process is logical and goal directed without suidical ideation or delusions
--- OUTSIDE RECORDS SUMMARY | 2024-10-18 13:57 | XMS_ITS | Patient Health Record ---
Author Organization [employer] Address [address] [place] [phone] Care Team Providers Care Radio Artist Name Role Phone KEVIN YEE Primary Care Provider ALLERGIES No Known Allergies RESULTS Component Value Reference Range Notes ANALYZER(TM)FERMIN, IFA WITH RE FLEX TITER/PATTERN, SYSTEMIC AUTOIMMUNE PANEL 1 ([id number]) Reviewed date:03/31/2024 01:40:01 PM Interpretation: Performing Lab:EZ, [facility],[address] [facility] Brittni Zamarripa MD,PhD,ASHLEY Notes/Report: NON-FASTING; NON-FASTING FERMIN [...] testing for anti-SS-A/Ro antibody should be considered. Anti-Noah-1 antibody should be considered for clinically suspected inflammatory myopathies. AC-0: Negative International Consensus on FERMIN Patterns https://doi.org/10.1515/cclm -5861-7548 For additional information, please refer to http://education.[employer].com/faq/NQQ089 (This link is being provided for information/educational purposes only.) DNA AB (DS) CRITHIDIA,IFA NEGATIVE NEGATIVE CHROMATIN (NUCLEOSOMAL) ANTIBODY <1.0 NEG <1.0 NEGATIVE AI SM ANTIBODY <1.0 NEG <1.0 NEGATIVE AI SM/BACK LINE COOK ANTIBODY <1.0 NEG <1.0 NEGATIVE AI BACK LINE COOK ANTIBODY <1.0 NEG <1.0 NEGATIVE AI SJOGREN'S ANTIBODY (SS-A) <1.0 NEG <1.0 NEGATIVE A I SJOGREN'S ANTIBODY (SS-B) <1.0 NEG <1.0 NEGATIVE A I SCL-70 ANTIBODY <1.0 NEG <1.0 NEGATIVE AI NOAH-1 ANTIBODY <1.0 NEG <1.0 NEGATIVE AI CENTROMERE [...] aging. For additional information, please refer to http://education.quest[facility].com/faq/EFI136 (This link is being provided for informational/educational [...] PEROXIDASE ANTIBODIES 1 <9 IU/mL DEMENTIA PANEL, RESTOREU() ([id number]) Reviewed date:03/22/2024 12:20:02 PM Interpretation: Performing Lab:NL2, [facility] [address] [place], [place] [id number] Alva Alexadner Notes/Report: NON-FASTING; NON-FASTING GLUCOSE 89 65-99 mg/dL [...] MPV 11.3 7.5-12.5 fL ABSOLUTE NEUTROPHILS 2834 4429-3533 cells/uL ABSOLUTE LYMPHOCYTES 0698 352-6396 cells/uL ABSOLUTE MONOCYTES 362 200-950 cells/uL ABSOLUTE EOSINOPHILS 80 15-500 cells/uL ABSOLUTE BASOPHILS 19 0-200 cells/uL NEUTROPHILS 60.3 LYMPHOCYTES 29.9 MONOCYTES 7.7 EOSINOPHILS 1.7 BASOPHILS 0.4 TSH 1.18 0.40-4.50 mIU/L VITAMIN B12 8124 327-3722 pg/mL FOLATE, SERUM >24.0 Reference Range Low: [...] Questions (FAQs) or visit the following link http://education.[employer]/faq/FAQ88 Enhanced report to follow. REASON FOR REFERRAL No Information MEDICATIONS Medication SIG (Take, Route, Frequency, Duration) Notes Start Date End Date Status Baclofen 10 MG 1 tablet as needed Orally Twice a day Takes 1 QHS PRN Active Biotin 1 QD Active Vitamin D3 50 MCG (1999) 1 capsule Orally Once a day Active CoQ10 300mg QD Active Alirocumab 75 MG/ML as directed Subcutaneous Active FreeStyle Gia 3 Sensor - as directed for 90 days Active Ozempic (0.25 or 0.5 MG/DOSE) 2 MG/3ML as directed Subcutaneous Active Stress B Complex/Antioxid/Zinc - as directed Orally Active Melatonin 10 MG as directed Orally Active Rosuvastatin Calcium 20 MG 1 tablet Orally Once a day Active Metoprolol Succinate ER 25 MG 1 tablet Orally Once a day Takes 1/2 daily (12.5mg) Active Aspirin 81 81 MG 1 tablet Orally Once a day Active SOCIAL HISTORY Tobacco Use: Social History Observation Description Date Details (start date - stop date) Never Smoker NA - NA Sex Assigned At : Social History Observation Description Sex Assigned At Unknown Tobacco Use/Smoking Question Answer Notes Tobacco use: nonsmoker Section Notes: Lives in [place] with hus band. Lives in [place] with hus band. Lives in [place] with hus band. Lives in [place] with hus band. Lives in [place] with hus band. Lives in [place] with hus band. PROBLEMS Problem Type ICD Code Onset Dates Problem Status W/U Status Risk SNOMED Code Notes Problem Inflammatory polyarthropathy (M06.4) Active confirmed Inflammatory polyarthropathy (770708720) Problem Sciatica, left side (M54.32) Active confirmed Left side sciat ica (418804461780294) Problem Poisoning by cardiac-stimulant glycosides and drugs of similar action, accidental (unintentional), initial encounter (T46.0X1A) Active confirmed Problem Other half-way (current) drug therapy (Z79.899) Active confirmed Long-term current use of drug therapy (984723258) Problem Hypercholesterolemia (E78.00) Active confirmed Hypercholestero lemia (92339630) Problem Familial hypercholesterolemia (E78.01) Active confirmed Familial hypercholesterolemia (703949668) Problem Pre-diabetes (R73.03) Active confirmed Prediabetes (372632861) Encounters Encounter Location Date Provider Diagnosis [address] [phone] 03/11/2024 KEVIN YEE Encounter to discuss test results Z71.2 and Inflammatory polyarthropathy M06.4 ASSESSMENTS Encounter Date Diagnosis Assessment Notes Treatment Notes Treatment Clinical Notes Section Notes 03/11/2024 Inflammatory polyarthropathy (ICD-10 - M06.4) 03/11/2024 Encounter to discuss test results (ICD-10 - Z71.2) All labs were reviewed and the results were explained to the patient in detail. Total time with patient >30 minutes which includes education and coordination of care. PLAN OF TREATMENT No Information Insurance Providers Payer Name Payer Address Payer Phone Subscriber Number Group Number Insured Name Patient Relationship to Insured Coverage Start Date Coverage End Date [facility] [address] [address] [place] [address] [id number] NATALIA NICO Self - patient is the insured MEDICAL (GENERAL) HISTORY Medical History History ICD Code Arthritis Hypercholesterolemia Heart Disease Osteopenia Surgical History Surgery Date(Month/Year) Bilateral Carpal Tunnel 5756-2088 Bunioinectomy & Hammer Toe 2006 & 2017 Rt. Rotator Cuff Repair 2018 Appendectomy 1972 Tonsilectomy 1989 Angioplasty w/2 Stents 2021 Hospitalization History Reason Date(Month/Year) Angioplasty & 2 Stents @ [facility] 2021
--- NOTE | 2024-10-18 14:05 | HO.SPINEOV ---
Vital Signs 10/18/24 14:14 Height 5 ft 3 in Weight 110 lb BMI 19.5 Intake Visit Reasons: spinal stenosis, lumbar region Intake Note: Mrs. Cabrales is here today c/o low back pain radiating to left thigh. Upholstery Trimmer Required: No Allergies pravastatin Adverse Reaction (Unknown, Verified 10/18/24 14:13) body pain Physical Exam Vital Signs: BMI result Body Mass Index 19.5 Assessment & Plan Assessment & Plan (1) Lumbar radiculopathy: Code(s): M54.16 - Radiculopathy, lumbar region Category: Medical Plan Dear Dr Bass, Thank you for referring Mrs Cabrales to our office today. She is a very nice 64-year-old female, history of CAD with stents a few years ago, presents for evaluation of an acute onset pain that started about 3 weeks ago radiating into the front of her thigh. She has not recall any specific event, although she had been before it started and the chiropractor was having trouble manipulating her and moving her so there was some shifting that was done. The pain was exquisitely intense and acute and was also associated with a dysesthesia on the left anterior thigh. The patient has had a history of chronic back problems that from time to time flare-up but nothing like this and nothing that was radiating down to a front of her thigh in the past. She ended up taking a trip to [place] about a week ago or so and the pain was significantly more intense at that time. She did see Dr. Crystal at [facility] before leaving for the trip and he gave her prescription for steroid taper, gabapentin. This does seem to help a bit. She has also been taking baclofen. At moment it seems like it might be better than it was, but at this point she is still in intense pain throughout the day in is starting to significantly affect her ability to function. She is coming in today for evaluation with an MRI showing degenerative disc disease at multiple levels. No cauda equina symptoms. PMH: History of coronary disease with 2 stents in November 2021, she has been stable since that time, high cholesterol, she is a prediabetic with A1c 5.8, osteopenia osteoarthritis, macular degeneration right shoulder rotator cuff repair, bilateral bunionectomy, bilateral carpal tunnel, right trigger finger. Social hx: She has not smoke, occasionally drinks wine, no marijuana Medications: Gabapentin, Praluent, baby aspirin, metoprolol, Tylenol, rosuvastatin, Ozempic, baclofen, Celebrex Allergies: No known drug allergies Physical exam: She is awake alert oriented, she appears uncomfortable, she is slow to stand up but she is able to get up on the examining table on her own. She has of mild weakness of her left dorsiflexion which I would rate as 4+ out of 5. Reflexes are normal in the patella, absent in the Achilles. Negative straight leg raise. Internal and external rotation of her hip does not reveal any significant discomfort. Imaging review: There is a lumbar MRI done in September 2024 at [place] and this shows multilevel degenerative disc disease. She has transitional anatomy and the radiologist is calling the lowest fully formed disc S1-S2, but to me it looks like a more traditional L5-S1. I will go by their numbering. There is a subtle grade 1 anterior listhesis at L3-4, there is no significant central canal stenosis. The only thing I see which is not reported by the radiologist as there is a small cranially oriented disc bulge in the left L5-S1 foramen. Impression: 64-year-old female presents with the acute onset of left anterior thigh pain which seems most consistent with the L4 dermatome. She also has a subtle amount of left dorsiflexion weakness which could also fit with the L4 myotome. The only thing I see on her imaging that might explain acute onset of pain is there is a very small cranially oriented disc bulge in the L5-S1 foramen. Although the radiologist is calling this L5-S1, to me it looks more classically like L4-5 and that would fit with her clinical presentation being the L4 dermatome and myotome. Other than that I do not see anything that would explain her presentation. I will refer her to and see if he will consider an injection, specifically a TFE to this area. Close attention will need to be paid to the anatomy obviously because of the transitional segment. I will refer her urgently as she has an intense amounts of pain. I will review her imaging with Dr. Sky as well to see if he has any other thoughts. Thank you for allowing us to care for your patient. The total time spent with this visit with this patient was 45 minutes reviewing history, physical exam, lumbar imaging review, and implementation of treatment plan or further diagnostic testing Herber Sky MD,PhD [facility] Orders: Referrals Physiatry Referral M54.16 - Radiculopathy, lumbar region Coding Level of Care Code New Pt Level 4 (48192) Diagnoses Lumbar radiculopathy M54.16
[2024-10-18 14:14] VITALS: BMI 19.5
== END 2024-10-18 15:27 | disposition home or self-care (01) ==
PROVIDERS: PCP Internal Medicine; Referring Provider Internal Medicine; Visit Provider Physician Assistant
DX: M54.16 Radiculopathy, lumbar region (principal)
CPT/HCPCS: 99204

== ENCOUNTER → 2024-10-18 13:54 | Outpatient (BNVA) | payer OTHER, SELFPAY | PROVIDERS: PCP Internal Medicine; Referring Provider Internal Medicine; Visit Provider Physician Assistant ==

== ENCOUNTER 2024-12-21 07:49 | Outpatient (REF) | payer OTHER, SELFPAY ==
--- OUTSIDE RECORDS SUMMARY | 2024-12-21 07:52 | XMS_ITS ---
Author Organization [facility] Address [address] [place] [phone] Care Team Providers Care Professor Of Poultry Science Name Role Phone TRACI HOWARD Primary Care Provider [phone] ALLERGIES No Known Allergies RESULTS Component Value Reference Range Notes ANALYZER(TM)FERMIN, IFA WITH RE FLEX TITER/PATTERN, SYSTEMIC AUTOIMMUNE PANEL 1 ([id number]) Reviewed date:03/31/2024 01:40:01 PM Interpretation: Performing Lab:[facility], [facility],[id number] [place] [address] [facility] [id number] Brittni Zamarripa MD,PhD,ASHLEY Notes/Report: NON-FASTING; NON-FASTING FERMIN [...] Negative International Consensus on FERMIN Patterns https://doi.org/10.1515/cclm -[email or web address] For additional information, please refer to http://education.test companyo Landscape Mobile.com/faq/XWJ234 (This link is being provided for information/educational purposes only.) DNA AB (DS) CRITHIDIA,IFA NEGATIVE NEGATIVE CHROMATIN (NUCLEOSOMAL) ANTIBODY <1.0 NEG <1.0 NEGATIVE AI SM ANTIBODY <1.0 NEG <1.0 NEGATIVE AI SM/SERVICE DESK ASSOCIATE ANTIBODY <1.0 NEG <1.0 NEGATIVE AI SERVICE DESK ASSOCIATE ANTIBODY <1.0 NEG <1.0 NEGATIVE AI SJOGREN'S [...] aging. For additional information, please refer to http://education.Emergent Discoverydiagno Landscape Mobile.com/faq/NYG203 (This link is being provided for informational/educational [...] ANTIBODIES 1 <9 IU/mL DEMENTIA PANEL, RESTORE() ([id number]) Reviewed date:03/22/2024 12:20:02 PM Interpretation: Performing Lab:[facility], [facility] [address] [place], [place] [id number] Alva Alexander Notes/Report: NON-FASTING; NON-FASTING GLUCOSE 89 [...] MPV 11.3 7.5-12.5 fL ABSOLUTE NEUTROPHILS 2834 [id number] cells/uL ABSOLUTE LYMPHOCYTES 3317 878-2983 cells/uL ABSOLUTE MONOCYTES 362 200-950 cells/uL ABSOLUTE EOSINOPHILS 80 15-500 cells/uL ABSOLUTE BASOPHILS 19 0-200 cells/uL NEUTROPHILS 60.3 LYMPHOCYTES 29.9 MONOCYTES 7.7 EOSINOPHILS 1.7 BASOPHILS 0.4 TSH 1.18 0.40-4.50 mIU/L VITAMIN B12 0168 304-1358 pg/mL FOLATE, SERUM >24.0 Reference Range Low: [...] Questions (FAQs) or visit the following link http://education.Jambo.Galenea/faq/FAQ88 Enhanced report to follow. REASON FOR VISIT [...] Tobacco use: nonsmoker Section Notes: Lives in [place] with hus band. Encounters Encounter Location Date Provider Diagnosis [address] [phone] 03/11/2024 TRACI HOWARD Encounter to discuss test [...] * NICO FISHERDOB:[birth year] (64 yo F)Acc No.[id number]:03/11/2024 Progress Note Patient:??INEZKIRK NICO Provider:??Traci Howard DNP :1960?Age:64 Y?Sex:Fe male Date:03/11/2024 Phone: Address:[address] [place] [id number] Subjective: * Chief Complaints: * ?F/U CHECK IN * HPI: ?Patient Care Team:?Hotel Director:??Dr. Bonita Mclean @ [address] [place] [address].? Providers/Specialists: Dr. Booker - Retinal Specialist ?Dr. Nati Paz - Chiropractor. ?New Patient Visit:? The patient consents to HIPAA compliant telehealth visit using a real time video platform within our EHR. The provider is located in the office and the patient is in their home for the duration of the visit. ?Visit info:? Nico presents by video today for a telehealth [...] appetite, depressed mood.? 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 * OB History:? History:?Total pregnancies:??2 ?Full-term pregnancies:??2 * Surgical History:??Bilateral Carpal Tunnel 1998-2000Bunioinectomy & Hammer Toe 2007 & 2018Rt. Rotator Cuff Repair 2019Appendectomy 1972Tonsilectomy 1989Angioplasty w/2 Stents 2021 * Hospitalization/Major Diagno stic Procedure:??Angioplasty & 2 Stents @ [facility] 2021 * Family History:??Father: dec eased 65 [...] you drink alcohol?: Yes, Socially. ?Lives in [place] with . * Medications:??TakingAlirocum ab 75 MG/ML [...] * Labs:?? * ?Lab: DEMENTIA SHY NOYOLA() ([id number]) * Procedure Codes:?? * Preventive Medicine:?Last CPE: 2021 @ former PCP ?Last Pap; 2021 w/PCP, normal per pt. ?Mammo: Fall 2021 @ [facility] ?DEXA: q 2 years, due 2022 @ [address] ?Colonoscopy: Due 01/2023 @ [facility] ?Endoscopy: Yes, approx. 2009 GERD sx's, +for HPylor & treated ?Covid Vac: Yes & boosters ?Flu Vac: Yes ?PV: No Shingles: No. * Follow Up:??prn (Reason: jt l consider membership) * Billing Information: * Visit Code:?? 00531 Office Visit, Est Pt., Level 4. * Procedure Codes:?? * Sign off status: Completed true * Provider:??Traci Howard DNP Date:??0 03/11/2024 History and Physical Notes * HPI (History of Present Illness) Category Sub-Category Detail Notes Category Not es Patient Care Team Hotel Director: Dr. Bonita Mclean @ [address] [place] [address] Providers/Specialist s: Dr. Booker - Retinal Specialist [...]
[2024-12-21 09:59] LABS: MANUAL DIFF FLAG NO
[2024-12-21 10:02] LABS: Basophils Percent Auto 0.8 % (0-2); Eosinophils Absolute Auto 0.2 X10*3/uL (0.0-0.4); Eosinophils Percent Auto 3.7 % (0-4); Hematocrit 40.1 % (37.0-47.0); Hemoglobin 13.5 g/dl (12.0-16.0); Imm Gran Abs Auto 0.02 X10*3/uL (0.00-0.03); Imm Gran Pct Auto 0.4 % (0.0-0.4); Lymphocytes Percent Auto 39.8 % (20-40); Mean Corpuscular HGB Conc 33.7 g/dl (31.0-35.0); Mean Corpuscular Hemoglobin 31.6 pg (27.0-33.0); Mean Corpuscular Volume 93.9 fL (80.0-98.0); Mean Platelet Volume 10.8 fL (9.4-12.3); Monocytes Absolute Auto 0.5 X10*3/uL (0.1-1.2); Monocytes Percent Auto 10.4 % (2-11); Neutrophils Absolute Auto 2.2 x10*3/uL (2.0-8.3); Neutrophils Percent Auto 44.9 % (45-73); Platelet Count 224 X10*3/uL (160-400); Red Blood Count 4.27 X10*6/uL (4.20-5.50); Red Cell Distribution Width 13.3 % (11.0-16.0); White Blood Count 4.9 X10*3/uL (4.8-10.8)
[2024-12-21 10:09] LABS: Estimated Average Glucose 111 mg/dL; Hemoglobin A1C 129.8246 umol/L; Hemoglobin A1c % 5.5 % (<6.0); Total Hemoglobin (HGBA1C) 3527.6241 umol/L
[2024-12-21 10:23] LABS: Alanine Aminotransferase 21 U/L (0-31); Albumin Level 4.1 g/dL (3.5-5.0); Alkaline Phosphatase 75 U/L (39-117); Anion Gap 10 (12-20); Aspartate Amino Transferase 25 U/L (5-31); Bilirubin Total 0.6 mg/dL (0.0-1.0); Blood Urea Nitrogen 17 mg/dL (9-16); Calcium 9.1 mg/dL (8.4-10.2); Carbon Dioxide 27 mmol/L (22-29); Chloride 106 mmol/L (96-108); Cholesterol 126 mg/dL (<200); Estimated Glomerular Filt Rate > 60; Glucose Fasting 86 mg/dL (60-99); HDL Cholesterol 77 mg/dL (>40); LDL Cholesterol Calculated 42 mg/dL (<100); Potassium 4.7 mmol/L (3.3-5.1); Sodium 138 mmol/L (135-145); Total Protein 7.2 g/dL (6.5-8.0); Triglycerides 39 mg/dL (<150)
== END 2024-12-21 07:50 | disposition home or self-care (01) ==
LOC: HO.HMGCLDS 07:49
PROVIDERS: PCP Internal Medicine; Visit Provider Internal Medicine
DX: E11.9 Type 2 diabetes mellitus without complications (principal); I25.10 Atherosclerotic heart disease of native coronary artery without angina pectoris; E78.5 Hyperlipidemia, unspecified
CPT/HCPCS: 36415; 80053; 80061; 83036; 85025

== ENCOUNTER 2025-05-09 09:32 | Outpatient (REF) | payer OTHER, SELFPAY ==
--- OUTSIDE RECORDS SUMMARY | 2025-05-09 10:07 | XMS_ITS | Clinical Summary ---
Author Organization [facility] Address [address] [facility] [address] [place] [phone] Phone Care Team Providers Care Stone Chimney Mason Name Role Phone Lavonne Bass MD Primary Care Provider [phone] Allergies Active Allergy Reactions Criticality Noted Date Comments Pravastatin 12/28/2020 Medications celecoxib (CELEBREX) 200 MG capsule Take 200 mg by mouth daily. Active rosuvastatin (CRESTOR) 5 MG tablet Take 5 mg by mouth. 07/17/2020 Active vitamins A,C,E-zinc-gill er (PRESERVISION AREDS) 14,320226-200 mbzj-aq-nrey Cap Take 1 capsule by mouth 2 (two) times a day with meals. Active coenzyme Q10 200 mg capsule Take 300 mg by mouth daily. Active Active Problems Problem Noted Date Diagnosed Date Arthralgia 01/04/2021 Bursitis 01/04/2021 Degenerative joint disease 01/04/2021 Hip pain 01/04/2021 Osteopenia 01/04/2021 Rheumatoid factor positive 01/04/2021 Sciatica 01/04/2021 Skin abnormalities 01/04/2021 Trochanteric bursitis 01/04/2021 Social History Tobacco Use Types Packs/Day Years Used Date Smoking Tobacco: Never Smokeless Tobacco: Never Alcohol Use Standard Drinks/Week Comments Yes 0 (1 standard drink = 0.6 oz pur e alcohol) Education Answer Date Recorded Are you interested in more education? Not on carla e 02/14/2023 Are you concerned about learning? Not on file 02/14/2023 No 02/14/2023 No 02/14/2023 Digital Access Answer Date Recorded No 03/15/2023 No 03/15/2023 No 03/15/2023 Reliable internet access at home? Not on file 03/15/2023 Device with a working camera? Not on file Comments Unknown Sex and Gender Information Value Date Recorded Sex Assigned at Not on file Legal Sex Female 2:42 PM EST Gender Identity Not on file Sexual Orientation Not on file Last Filed Vital Signs Vital Sign Reading Time Taken Comments Blood Pressure 124/64 10/15/2021 10:22 AM EST Pulse 79 10/15/2021 10:22 AM EST Temperature - - Respiratory Rate 16 10/15/2021 10:22 AM EST Oxygen Saturation 98% 10/15/2021 10:22 AM EST Inhaled Oxygen Concentration - - Weight 57.6 kg (127 lb) 10/15/2021 10:22 AM EST Height 160 cm (5' 2.99 ) 10/15/2021 10:22 AM EST Body Mass Index 22.5 10/15/2021 10:22 AM EST Plan of Treatment Health Maintenance Due Date Last Done Comments Adult Td,Tdap Booster 1960 LIPID PANEL 1960 DEPRESSION SCREENING 1972 HIV ONE-TIME SCREENING (18-6 5 YEARS) 01/11/1978 SMOKING STATUS SCREENING (On ce After 26 Yrs) 01/11/1986 MAMMOGRAM 2000 COLOGUARD 01/11/2005 COLONOSCOPY 01/11/2005 COLORECTAL CANCER SCREENING 01/11/2005 FIT TEST 01/11/2005 FOBT 01/11/2005 SIGMOIDOSCOPY 01/11/2005 VIRTUAL COLONOSCOPY 01/11/2005 PNEUMOCOCCAL VACCINES (50+ years) (1 of 1 - PCV) 01/11/2010 ZOSTER VACCINES (1 of 2) 01/11/2010 COVID-19 VACCINE (4 - 2023-2 5 season) 2024 09/10/2021, 01/06/2021, 12/09/2020 OSTEOPOROSIS SCREENING INITI AL (ONE-TIME) 01/11/2025 RSV VACCINE (1 - 1-dose 75+ series) 01/11/2035 HEPATITIS C SCREENING Completed 01/16/2021 HEPATITIS A VACCINES Aged Out No long er eligible based on patient's age to complete this topic HIB VACCINES Aged Out No longer eligi ble based on patient's age to complete this topic MENINGOCOCCAL VACCINES (ACWY) Aged Out No longer eligible based on patient's age to complete this topic MENINGOCOCCAL VACCINES (B) Aged Out N o longer eligible based on patient's age to complete this topic Medical Devices Not on file Procedures Procedure Name Priority Date/Time Associated Diagnosis Comments HEPATITIS C ANTIBODY, QUALITATIVE Routine 01/16/2021 1:21 PM EDT Rheumatoid factor positive Pain in joints from Last 3 Months or Most Recently Relevant to Health Maintenance Results * Hepatitis C antibody, qualitative (01/16/2021 1:21 PM EDT) HCV NON-REACTIV E NON-REACTI VE [facility] Blood 01/16/2021 1:21 PM EDT 01/16/2021 1:23 PM EDT Hermann Esposito MD LAB BLOOD ORDERAB LES Final Result Performing Organization Address City/State/[facility] Co de Phone Number [address] [phone] from Last 3 Months or Most Recently Relevant to Health Maintenance Insurance [place] [address] [place] [address] PPO PPO PPO PPO PPO PPO PPO [facility] PPO Care Teams Stone Chimney Mason Relationship Specialty Start Date End Date Lavonne Bass MD 1961 [facility] [place] [address] PCP - General Internal Medicine 11/28/20 Additional Source Comments The information contained in this document represents components of the legal health record. It is not the complete legal health record.[facility]
[2025-05-09 12:57] LABS: MANUAL DIFF FLAG NO
[2025-05-09 13:01] LABS: Hematocrit 41.1 % (37.0-47.0); Hemoglobin 13.4 g/dl (12.0-16.0); Imm Gran Abs Auto 0.02 X10*3/uL (0.00-0.03); Imm Gran Pct Auto 0.4 % (0.0-0.4); Lymphocytes Absolute Auto 1.7 X10*3/uL (1.2-4.9); Mean Corpuscular HGB Conc 32.6 g/dl (31.0-35.0); Mean Corpuscular Hemoglobin 31.2 pg (27.0-33.0); Mean Corpuscular Volume 95.6 fL (80.0-98.0); NRBC Abs Auto 0.000 X10*3/uL (0.0-0.012); NRBC Pct Auto 0.0 /100WBC (0.0-0.2); Platelet Count 246 X10*3/uL (160-400); Red Blood Count 4.30 X10*6/uL (4.20-5.50); White Blood Count 5.2 X10*3/uL (4.8-10.8)
[2025-05-09 13:20] LABS: Hemoglobin A1C 131.4788 umol/L; Total Hemoglobin (HGBA1C) 3586.7468 umol/L
[2025-05-09 13:28] LABS: Alanine Aminotransferase 30 U/L (0-31); Albumin Level 4.4 g/dL (3.5-5.0); Alkaline Phosphatase 83 U/L (39-117); Anion Gap 11 (12-20); Aspartate Amino Transferase 31 U/L (5-31); Blood Urea Nitrogen 15 mg/dL (9-16); Calcium 9.2 mg/dL (8.4-10.2); Carbon Dioxide 29 mmol/L (22-29); Chloride 106 mmol/L (96-108); Cholesterol 133 mg/dL (<200); Estimated Glomerular Filt Rate > 60; HDL Cholesterol 75 mg/dL (>40); Potassium 5.0 mmol/L (3.3-5.1); Sodium 141 mmol/L (135-145); Total Protein 7.0 g/dL (6.5-8.0); Triglycerides 56 mg/dL (<150)
[2025-05-09 13:40] LABS: Appearance Urine Clear; Glucose Urine UA Negative (Negative); PH 5.5 (5.0-9.0); Specific Gravity - Urine 1.010 (1.005-1.025)
== END 2025-05-09 09:33 | disposition home or self-care (01) ==
LOC: HO.HMGCLDS 09:32
PROVIDERS: PCP Internal Medicine; Visit Provider Internal Medicine
DX: I25.10 Atherosclerotic heart disease of native coronary artery without angina pectoris (principal); E78.5 Hyperlipidemia, unspecified; E11.9 Type 2 diabetes mellitus without complications; E55.9 Vitamin D deficiency, unspecified
CPT/HCPCS: 36415; 80053; 80061; 81001; 82306; 83036; 85025

== ENCOUNTER 2025-05-13 10:09 | Outpatient (AMB) | payer OTHER, SELFPAY ==
[2025-05-13 10:21] VITALS: BP 108/64; PULSE 72; RESP 16; TEMP 36.7; O2SAT 97; BMI 19.8
--- NOTE | 2025-05-13 10:21 | MHC.PC.OV ---
Vital Signs 05/13/25 10:21 Height 5 ft 3 in Weight 112 lb BMI 19.8 BP 108/64 Blood Pressure Location Lt brachial Position Sitting Respiration 16 Pulse 72 Pulse Source Pulse Oximeter Temp 98.1 F Temp Source Oral Pulse Oximetry (%) 97 Oxygen Delivery Method Room Air Intake Visit Reasons: Annual PE Circular Sawyer Helper Required: No Accompanied by: Self / Same As Patient Allergies pravastatin Adverse Reaction (Unknown, Verified 05/13/25 10:21) body pain Medication List - Last Reconciled 05/13/25 by Lavonne Bass MD alirocumab (Praluent Pen) 75 mg subcut Q2W aspirin 81 mg PO DAILY baclofen 10 mg PO BEDTIME blood-glucose sensor (iBid2Saveyle Gia 3 Sensor device) As directed celecoxib 200 mg PO DAILY flash glucose scanning reader ([employer]Style Gia 2 [place]) 3 As directed flash glucose sensor (FreeStyle Gia 2 Sensor kit) As directed flu vac qs 2019-(4 yr up) CD mL IM lorazepam 0.5 mg PO DAILY PRN metoprolol succinate ER 12.5 mg (1/2 x 25 mg) PO DAILY Ozempic (semaglutide) 1 mg (0.75 mL) subcut QWEEK NS rosuvastatin 20 mg PO DAILY zolpidem (Ambien) 5 mg PO BEDTIME PRN Tobacco use date assessed: 05/13/25 Fall risk assessment: No Falls in past year Last assessed Fall Risk: 05/13/25 Dental Screening Dental Screen Date: 05/13/25 Did you have a dental visit in the last 12 months?: Yes Did you have a dental problem in the last 6 months where you did not have access to dental care?: No Was dental information given to patient?: Patient has dentist HPI Annual PE HPI Details Pt presents for PE. Patient complains of intermittent generalized body aches and like cramps at night. Patient denies joint swelling or prolonged morning stiffness. She has been exercising regularly and denies exercise-induced chest pain shortness or breath. Patient has been taking Celebrex as needed with good relief. Patient is concerned about higher than last year FIB-4 for fatty liver. [facility] Medical History (Updated 05/13/25 @ 15:28 by Lavonne Bass MD) CAD (coronary artery disease) Spinal stenosis at L4-L5 level Hyperlipidemia Trochanteric bursitis Bursitis Skin abnormalities Annual physical exam Hip pain Sciatica Arthralgia Rheumatoid factor positive Osteopenia Degenerative joint disease (DJD) of lumbar spine Surgical History H/O rotator cuff surgery H/O colonoscopy No pertinent past surgical history Family History Father No problems noted. Mother No problems noted. Son No problems noted. Daughter No problems noted. Social History Housing: House Alcohol intake: current Alcohol intake frequency: a few times a month Patient Tobacco Use Status: Never used Tobacco e-Cigarette/Vaping Use: Never Used service: No Current occupational status: employed Cognitive needs: No Hearing needs: No Vision needs: Yes Questionnaire PHQ-9 Over the last 2 weeks, how often have you been bothered by any of the following problems? 1. Little interest or pleasure in doing things: not at all 2. Feeling down, depressed, or hopeless: not at all 3. Trouble falling or staying asleep, or sleeping too much: several days 4. Feeling tired or having little energy: not at all 5. Poor appetite or overeating: not at all 6. Feeling bad about yourself - or that you are a failure or have let yourself or your family down: not at all 7. Trouble concentrating on things, such as reading the newspaper or watching television: not at all 8. Moving or speaking so slowly that other people could have noticed. Or the opposite - being so fidgety or restless that you have been moving around a lot more than usual: not at all 9. Thoughts that you would be better off or of hurting yourself in some way: not at all Total score: 1 Depression Screening Interpretation: Negative Depression Screening Done: Yes 14415 - PHQ-9 Billing: Yes Source: Developed by Drs. Douglas Fragoso, Sindy Hines, Roger Burgess and colleagues, with an educational dee dee from [employer]. Thrive Questionnaire Date Thrive assessed: 05/06/25 I am a: Patient What is your living situation today?: I have a steady place to live Within the past 12 months, did the food you bought not last and you didn't have the money to get more?: Never true Within the past 12 months, did you worry whether your food would run out before you got money to buy more?: Never true Do you have trouble paying for medicines?: No Do you have trouble getting transportation to medical appointments?: No Do you have trouble paying your heating and electricity bill?: No Do you have trouble taking care of your child, family member or friend?: No Do you have trouble with day-to-day activities such as bathing, preparing meals, shopping, managing finances, etc.?: No Are you currently unemployed and looking for a job?: No Are you interested in more education?: No Please select the resources that you would like help with: None Currently or been in a relationship where the following occur: No concerns reported THRIVE Score: 0 AUDIT C Alcohol Use Questionnaire (AUDIT-C) 1. How often do you have a drink containing alcohol?: 2-4 times a month 2. How many drinks containing alcohol do you have on a typical day when you are drinking?: 1 or 2 3. How often do you have six or more drinks on one occasion?: Never Total Score: 2 JOSH-7 AMB Questionnaire JOSH-7 Date JOSH - 7 assessed: 05/13/25 Feeling nervous, anxious, or on edge: 0 = Not at all Not being able to stop or control worryin = Not at all Worrying too much about different things: 0 = Not at all Trouble relaxin = Not at all Being so restless that it is hard to sit still: 0 = Not at all Becoming easily annoyed or irritable: 0 = Not at all Feeling afraid as if something awful might happen: 0 = Not at all Total JOSH-7 score (0-4 normal; 5-9 mild; 10-14 moderate; 15-21 severe): 0 Source: Developed by Drs. Douglas Fragoso, Sindy Hines, Roger Burgess and colleagues, with an educational dee dee from [employer]. JOSH-7 Assessment Billing JOSH-7 Assessment Tool: JOSH-7 Assessment 86335 Review of Systems Const All systems reviewed & are unremarkable except as noted in HPI and below Eyes Reports no additional complaints ENT Reports no additional complaints Card Reports no additional complaints Resp Reports no additional complaints GI Reports no additional complaints Reports no additional complaints Physical exam (Primary Care) Vital Signs: Last Vital Signs Temp 98.1 F 05/13/25 10:21 Pulse 72 05/13/25 10:21 Resp 16 05/13/25 10:21 BP 108/64 05/13/25 10:21 Pulse Ox 97 05/13/25 10:21 Oxygen Delivery Method Room Air 05/13/25 10:21 BMI result Body Mass Index 19.8 Tobacco/Smoking Status: Tobacco use Status Tobacco use date assessed 05/13/25 05/13/25 10:24 Patient Tobacco Use Status Never used Tobacco 05/13/25 10:24 e-Cigarette/Vaping Use Never Used 05/13/25 10:24 PHQ-9: PHQ-9 Score PHQ-9: Total score 1 05/13/25 11:10 Depression Screening Interpretation: Negative Thrive Assessment: Date of Thrive Assessment Date Thrive assessed 05/06/25 05/13/25 10:24 Currently or been in a relationship where the following occur: No concerns reported Const General: no acute distress HENMT Head: Yes normal to inspection Ears: hearing grossly normal bilaterally Face and sinus: Yes normal facial exam Mouth: Normal oral and palatal mucosa present Throat: Yes posterior oropharynx normal Eyes General: appearance normal, both eyes and all related structures Neck Neck: Yes no lymphadenopathy and Yes supple Resp Effort & Inspection: normal respiratory effort Auscultation: clear to auscultation bilaterally Cardio Rhythm: regular rhythm Heart sounds: S1 normal heart sound present and S2 normal heart sound present GI Inspection: Yes normal to inspection Palpation (GI): Soft to palpation Percussion: Yes normal to percussion Auscultation: normal bowel sounds Coding Level of Care Code Est Pt Prev Care >65y(75439) Diagnoses Hyperlipidemia E78.5 CAD (coronary artery disease) I25.10 DM type 2 (diabetes mellitus, type 2) E11.9 Osteopenia M85.80 Elevated liver enzymes R74.8 Spinal stenosis at L4-L5 level M48.061 Annual physical exam Z00.00 Additional Codes JOSH-7 Assessment Billing - JOSH-7 Assessment Tool: JOSH-7 Assessment 49591 ([id number]) PHQ-9 - 32916 - PHQ-9 Billing: Yes ([id number]) Assessment & Plan Assessment & Plan (1) Hyperlipidemia: Comment: Not at goal at the maximum dose of Crestor Code(s): E78.5 - Hyperlipidemia, unspecified Category: Medical Plan: Continue current medications (2) CAD (coronary artery disease): Comment: 2 KATHI stents in mid LCx , balloon OM 1, 2 at [facility], f/u cadiology Code(s): I25.10 - Atherosclerotic heart disease of lummi coronary artery without angina pectoris Category: Medical Plan: Follow-up with the Cardiology annually continue high dose statin aspirin and beta selena (3) DM type 2 (diabetes mellitus, type 2): Code(s): E11.9 - Type 2 diabetes mellitus without complications Category: Medical Plan: A1c is 5.5. Continue Ozempic ADA diet regular exercise follow-up in 6 months with a fasting labs before (4) Osteopenia: Code(s): M85.80 - Other specified disorders of bone density and structure, unspecified site Category: Medical Plan: Continue vitamin-D supplement weight-bearing exercises monitor DEXA (5) Elevated liver enzymes: Comment: Increased FIB -4 score Code(s): R74.8 - Abnormal levels of other serum enzymes Category: Medical Plan: Obtain the ultrasound with elastography to evaluate for liver fibrosis (6) Spinal stenosis at L4-L5 level: Comment: MRI lumbar 11/2020,10/2023. established with [facility] for pain management in the cortisone injection Code(s): M48.061 - Spinal stenosis, lumbar region without neurogenic claudication Category: Medical Plan: Follow-up with pain management (7) Annual physical exam: Code(s): Z00.00 - Encounter for general adult medical examination without abnormal findings Category: Medical Plan: Well-balanced diet regular physical activity discussed with the patient follow-up in 6 months Orders: Orders TSH reflex Free T4 6 Months E11.9 - Type 2 diabetes mellitus without complications, E78.5 - Hyperlipidemia, unspecified, I25.10 - Atherosclerotic heart disease of lummi coronary artery without angina pectoris Rheumatoid Factor Today I25.10 - Atherosclerotic heart disease of lummi coronary artery without angina pectoris US abdomen hinson w elastography Today R74.8 - Abnormal levels of other serum enzymes Comprehensive [place]. Panel Fast 6 Months E11.9 - Type 2 diabetes mellitus without complications, E78.5 - Hyperlipidemia, unspecified, I25.10 - Atherosclerotic heart disease of lummi coronary artery without angina pectoris Lipid Panel 6 Months E11.9 - Type 2 diabetes mellitus without complications, E78.5 - Hyperlipidemia, unspecified, I25.10 - Atherosclerotic heart disease of lummi coronary artery without angina pectoris Hemoglobin A1c 6 Months E11.9 - Type 2 diabetes mellitus without complications, E78.5 - Hyperlipidemia, unspecified, I25.10 - Atherosclerotic heart disease of lummi coronary artery without angina pectoris Microalbumin, Random (w Creat) 6 Months E11.9 - Type 2 diabetes mellitus without complications, E78.5 - Hyperlipidemia, unspecified, I25.10 - Atherosclerotic heart disease of lummi coronary artery without angina pectoris Medications: New gabapentin 300 mg PO BEDTIME 90 caps 0RF estradiol 0.01%(0.1mg/gram) 1 g vaginal 3XW 42.5 grams 5RF
--- OUTSIDE RECORDS SUMMARY | 2025-05-13 10:27 | XMS_ITS | Clinical Summary ---
Author Organization [facility] Address [address] [facility] [address] [place] [id number] Phone Care Team Providers Care Cardiac Catheterization Technician Name Role Phone Lavonne Bass MD Primary Care Provider [phone] Allergies Active Allergy Reactions Criticality Noted Date Comments Pravastatin 12/28/2020 Medications celecoxib (CELEBREX) 200 MG capsule Take 200 mg by mouth daily. Active rosuvastatin (CRESTOR) 5 MG tablet Take 5 mg by mouth. 07/17/2020 Active vitamins A,C,E-zinc-gill er (PRESERVISION AREDS) 14,320226-200 hgtt-qi-uozj Cap Take 1 capsule by mouth 2 [...] PM EDT) HCV NON-REACTIV E NON-REACTI VE [facility] Blood 01/16/2021 1:21 PM EDT 01/16/2021 1:23 PM EDT Hermann Esposito MD LAB BLOOD ORDERAB LES Final Result Performing Organization Address City/State/[facility] Co de Phone Number [address] [address] from Last 3 Months or Most Recently Relevant to Health Maintenance Insurance [place] [address] [place] [address] PPO PPO PPO PPO PPO PPO PPO [facility] PPO Care Teams Cardiac Catheterization Technician Relationship Specialty Start Date End Date Lavonne Bass MD [address] [place] [address] PCP - General Internal Medicine 11/28/20 Additional Source Comments The information contained in this document represents components of the legal health record. It is not the complete legal health record.[facility]
== END 2025-05-13 11:40 | disposition home or self-care (01) ==
LOC: HO.HMCC 10:09
PROVIDERS: PCP Internal Medicine; Visit Provider Internal Medicine
DX: E78.5 Hyperlipidemia, unspecified (principal); I25.10 Atherosclerotic heart disease of native coronary artery without angina pectoris; E11.9 Type 2 diabetes mellitus without complications; M85.80 Other specified disorders of bone density and structure, unspecified site; R74.8 Abnormal levels of other serum enzymes; M48.061 Spinal stenosis, lumbar region without neurogenic claudication; Z00.00 Encounter for general adult medical examination without abnormal findings

== ENCOUNTER → 2025-05-13 10:09 | Outpatient (BNVA) | payer OTHER, SELFPAY | PROVIDERS: PCP Internal Medicine; Visit Provider Internal Medicine | DX: Z00.00 Encounter for general adult medical examination without abnormal findings (principal); E78.5 Hyperlipidemia, unspecified; I25.10 Atherosclerotic heart disease of native coronary artery without angina pectoris; R52 Pain, unspecified; E11.9 Type 2 diabetes mellitus without complications; M85.80 Other specified disorders of bone density and structure, unspecified site; R74.8 Abnormal levels of other serum enzymes; M48.061 Spinal stenosis, lumbar region without neurogenic claudication | CPT/HCPCS: 96127 ==

== ENCOUNTER 2025-07-21 07:52 | Outpatient (REF) | payer OTHER, SELFPAY ==
--- NOTE | ~2025-07-21 | US_ITS ---
EXAMINATION: US ABDOMEN LIMITED WITH LIVER ELASTOGRAPHY CLINICAL INFORMATION: Abnormal levels of other serum enzymes COMPARISON: None available. TECHNIQUE: Real-time imaging of the abdominal viscera. Noninvasive ultrasound liver fibrosis assessment is performed using Devon ElastPQ point quantification shear wave elastography (pSWE) with a 5 MHz transducer. Multiple elastography samples are obtained. FINDINGS: PANCREAS: The visualized pancreatic head and body are normal in appearance. The remainder of the pancreas is obscured from visualization by the overlying bowel gas. LIVER: The liver demonstrates normal size, contour and echogenicity. No focal lesion or intrahepatic biliary duct dilatation. The right lobe measures 13 cm in length. The left lobe measures 10 cm in length. Shear wave elastography provides a median stiffness of 0.9 m/s (reference: normal median stiffness is 0.81 - 1.22 m/s). The IQR/median stiffness to assess sampling precision is 0.2 (reference: optimal IQR/median stiffness is under 0.3). GALLBLADDER: The gallbladder is physiologically distended without evidence of stones, sludge, polyps, wall thickening or pericholecystic fluid. COMMON BILE DUCT: Normal in caliber measuring 0.3 cm in diameter. RIGHT KIDNEY: No hydronephrosis. No renal calculi or focal parenchymal lesions. The kidney measures 10.6 cm in maximum dimension. FREE FLUID: None seen. US/US abdomen hinson w elastography IMPRESSION: 1. Impression: Normal right upper quadrant ultrasound. 2. Elastography: Liver elastography measurements are within normal (METAVIR Stage F0). Electronically signed by: India Howard MD 07/21/2025 11:01 AM EDT
--- OUTSIDE RECORDS SUMMARY | 2025-07-21 07:56 | XMS_ITS | Clinical Summary ---
Author Organization [facility] Address [address] [facility] [address] [place] [address] Phone Care Team Providers Care Reclamation Worker Name Role Phone Lavonne Bass MD Primary Care Provider [phone] Allergies Active Allergy Reactions Criticality Noted Date Comments Pravastatin 12/28/2020 Medications celecoxib (CELEBREX) 200 MG capsule Take 200 mg by mouth daily. Active rosuvastatin (CRESTOR) 5 MG tablet Take 5 mg by mouth. 07/17/2020 Active vitamins A,C,E-zinc-gill er (PRESERVISION AREDS) 14,320226-200 gfdt-cg-hkrv Cap Take 1 capsule by mouth 2 [...] 1960 DEPRESSION SCREENING 1972 HIV ONE-TIME SCREENING (18-65 YEARS) 01/11/1978 SMOKING STATUS SCREENING (Once After 26 Yrs) 01/11/1986 MAMMOGRAM 2000 COLOGUARD 01/11/2005 COLONOSCOPY 01/11/2005 COLORECTAL CANCER SCREENING 01/11/2005 FIT TEST 01/11/2005 FOBT 01/11/2005 SIGMOIDOSCOPY 01/11/2005 VIRTUAL COLONOSCOPY 01/11/2005 PNEUMOCOCCAL VACCINES (50+ years) (1 of 1 - PCV) 01/11/2010 ZOSTER VACCINES (1 of 2) 01/11/2010 OSTEOPOROSIS SCREENING INITIAL (ONE-TIME) 01/11/2025 INFLUENZA VACCINE (#1) 2025 , 08/24/2020, 10/06/2019, Additional history exists COVID-19 VACCINE ( - 2024- season) 2025 09/10/2021, 01/06/2021, 12/09/2020 RSV VACCINE (1 - 1-dose 75+ series) [...] PM EDT) HCV NON-REACTIV E NON-REACTI VE [facility] Blood 01/16/2021 1:21 PM EDT 01/16/2021 1:23 PM EDT us Hermann Esposito MD LAB BLOOD ORDERAB LES Final Result [facility] [address] [place], [place] [id number] from Last 3 Months or Most Recently Relevant to Health Maintenance [place] [address] [address] PPO PPO PPO PPO HEALTHCARE PPO PPO PPO PPO [facility] PPO Care Teams Reclamation Worker Relationship Specialty Start Date End Date Lavonne Bass MD [address] [facility] [place] [address] PCP - General Internal Medicine 11/28/20 Additional Source Comments The information contained in this document represents components of the legal health record. It is not the complete legal health record.[facility]
== END 2025-07-21 07:53 | disposition home or self-care (01) ==
LOC: HO.US 07:52
PROVIDERS: PCP Internal Medicine; Visit Provider Internal Medicine
DX: R74.8 Abnormal levels of other serum enzymes (principal)
CPT/HCPCS: 76705; 76981

== ENCOUNTER → 2025-07-21 07:54 | Outpatient (BNV) | payer OTHER, SELFPAY | PROVIDERS: PCP Internal Medicine; Visit Provider Radiology Diagnostic Radiology | DX: R74.8 Abnormal levels of other serum enzymes (principal) | CPT/HCPCS: 76705 ==

== ENCOUNTER 2025-08-12 07:32 | Outpatient (REF) | payer OTHER, SELFPAY ==
--- OUTSIDE RECORDS SUMMARY | 2025-08-12 07:35 | XMS_ITS | Clinical Summary ---
Author Organization [facility] Address [address] [facility] [address] [place] [address] Phone Care Team Providers Care Clam Dredger Name Role Phone Lavonne Bass MD Primary Care Provider [phone] Allergies Active Allergy Reactions Criticality Noted Date Comments Pravastatin 12/28/2020 Medications celecoxib (CELEBREX) 200 MG capsule Take 200 mg by mouth daily. Active rosuvastatin (CRESTOR) 5 MG tablet Take 5 mg by mouth. 07/17/2020 Active vitamins A,C,E-zinc-gill er (PRESERVISION AREDS) 14,320226-200 ujae-yn-aejd Cap Take 1 capsule by mouth 2 [...] PM EDT) HCV NON-REACTIV E NON-REACTI VE [facility] Blood 01/16/2021 1:21 PM EDT 01/16/2021 1:23 PM EDT us Hermann Esposito MD LAB BLOOD ORDERAB LES Final Result [facility] [address] [place], [place] [phone] from Last 3 Months or Most Recently Relevant to Health Maintenance [place] [address] [place] [address] UNITED PPO UNITED PPO UNITED PPO UNITED PPO UNITED PPO UNITED PPO [facility] Care Teams Clam Dredger Relationship Specialty Start Date End Date Lavonne Bass MD [address] [place] [address] PCP - General Internal Medicine 11/28/20 Additional Source Comments The information contained in this document represents components of the legal health record. It is not the complete legal health record.[facility]
[2025-08-12 10:51] LABS: Alanine Aminotransferase 33 U/L (0-31); Albumin Level 4.2 g/dL (3.5-5.0); Alkaline Phosphatase 80 U/L (39-117); Anion Gap 10 (12-20); Aspartate Amino Transferase 35 U/L (5-31); Blood Urea Nitrogen 13 mg/dL (9-16); Calcium 9.1 mg/dL (8.4-10.2); Carbon Dioxide 28 mmol/L (22-29); Chloride 106 mmol/L (96-108); Cholesterol 126 mg/dL (<200); Estimated Glomerular Filt Rate > 60; HDL Cholesterol 75 mg/dL (>40); Potassium 4.1 mmol/L (3.3-5.1); Sodium 140 mmol/L (135-145); Total Protein 6.7 g/dL (6.5-8.0); Triglycerides 44 mg/dL (<150)
[2025-08-12 10:54] LABS: Microalbum/Creatinine Ratio Ur 20.6 ug/mg cr (<30)
== END 2025-08-12 07:33 | disposition home or self-care (01) ==
LOC: HO.HMGCLDS 07:32
PROVIDERS: PCP Internal Medicine; Visit Provider Internal Medicine
DX: I25.10 Atherosclerotic heart disease of native coronary artery without angina pectoris (principal); E11.9 Type 2 diabetes mellitus without complications; E78.5 Hyperlipidemia, unspecified
CPT/HCPCS: 36415; 80053; 80061; 82043; 82570; 83036; 84443; 86431

== ENCOUNTER 2025-09-05 14:04 | Outpatient (AMB) | payer OTHER, SELFPAY ==
--- NOTE | 2025-09-05 14:09 | A.OFFPC_ITS ---
Intake Visit Reasons: Telehealth go over results and some questions Allergies pravastatin Adverse Reaction (Unknown, Verified 09/05/25 14:22) body pain Medication List - Last Reconciled 09/05/25 by Lavonne Bass MD alendronate 70 mg PO QWEEK alirocumab (Praluent Pen) 75 mg subcut Q2W aspirin 81 mg PO DAILY baclofen 10 mg PO BEDTIME PRN celecoxib 200 mg PO DAILY PRN coenzyme Q10 (H2Q CoQ10) PO estradiol 0.01%(0.1mg/gram) 1 g vaginal 3XW flu vac qs 2019-(4 yr up) CD mL IM FreeStyle Gia 3 Plus Sensor (blood-glucose sensor) Test blood sugar 4 times per day NS gabapentin 300 mg PO BEDTIME lorazepam 0.5 mg PO DAILY PRN metoprolol succinate ER 50 mg PO DAILY Ozempic (semaglutide) 1 mg (0.75 mL) subcut QWEEK NS Ozempic (semaglutide) 2 mg (0.75 mL) subcut QWEEK NS rosuvastatin 20 mg PO DAILY vitamins A,C,P-dncv-qbbybd (PreserVision AREDS) PO BID zolpidem (Ambien) 5 mg PO BEDTIME PRN Tobacco use date assessed: 09/05/25 Fall risk assessment: No Falls in past year Last assessed Fall Risk: 09/05/25 Dental Screening Dental Screen Date: 05/13/25 HPI Telehealth go over results and some questions HPI Details Pt presents for Tele health. Pt c/o arrhythmia and had Holter at [facility]iology and will have 2nd opinion with [facility] Dr. Tobar. Patient reports intermittent palpitations and was diagnosed with frequent PVCs and runs of SVT questionable of AFib. Metoprolol dose was increased to 50 mg a day. Hyperlipidemia has been well controlled. [facility] Medical History (Updated 09/05/25 @ 15:03 by Lavonne Bass MD) Osteoporosis SVT (supraventricular tachycardia) CAD (coronary artery disease) Spinal stenosis at L4-L5 level Hyperlipidemia Trochanteric bursitis Bursitis Skin abnormalities Annual physical exam Hip pain Sciatica Arthralgia Rheumatoid factor positive Osteopenia Degenerative joint disease (DJD) of lumbar spine Surgical History H/O rotator cuff surgery H/O colonoscopy No pertinent past surgical history Family History Father No problems noted. Mother No problems noted. Son No problems noted. Daughter No problems noted. Social History Housing: House Alcohol intake: current Alcohol intake frequency: a few times a month Patient Tobacco Use Status: Never used Tobacco e-Cigarette/Vaping Use: Never Used service: No Current occupational status: employed Cognitive needs: No Hearing needs: No Vision needs: Yes Questionnaire Thrive Questionnaire Date Thrive assessed: 05/06/25 JOSH-7 AMB Questionnaire JOSH-7 Date JOSH - 7 assessed: 05/13/25 Source: Developed by Drs. Douglas Fragoso, Sindy Hines, Roger Burgess and colleagues, with an educational dee dee from [employer]. Review of Systems Const All systems reviewed & are unremarkable except as noted in HPI and below Eyes Reports no additional complaints ENT Reports no additional complaints Card Reports no additional complaints Resp Reports no additional complaints GI Reports no additional complaints Reports no additional complaints Physical exam (Primary Care) Tobacco/Smoking Status: Tobacco use Status Tobacco use date assessed 09/05/25 09/05/25 14:11 Patient Tobacco Use Status Never used Tobacco 09/05/25 14:11 e-Cigarette/Vaping Use Never Used 09/05/25 14:11 Thrive Assessment: Date of Thrive Assessment Date Thrive assessed 05/06/25 09/05/25 14:11 Telehealth Telehealth Telehealth Platform: Telephone Location of provider rendering services: practice address Location of patient: address on file Patient Identification confirmed using: Name, : Yes Telehealth method: voice only Patient verbally consented to treatment: Yes Patient verbally consented to billing insurance company: Yes Patient informed of any privacy concerns related to visit: Yes Minutes spent on Phone/Video with Pt.: 15 Coding Level of Care Code Tele Est Pt Level 4 (15479) Diagnoses SVT (supraventricular tachycardia) I47.1 Hyperlipidemia E78.5 Osteoporosis M81.0 Assessment & Plan Assessment & Plan (1) SVT (supraventricular tachycardia): Comment: on Holter 07/2025 Code(s): I47.1 - Supraventricular tachycardia Category: Medical Plan: Continue beta selena follow-up with Cardiology (2) Hyperlipidemia: Comment: Not at goal at the maximum dose of Crestor Code(s): E78.5 - Hyperlipidemia, unspecified Category: Medical Plan: Continue current medications (3) Osteoporosis: Comment: DEXA 06/2024 T score -2.5 [facility], alendronate started 08/2025 Code(s): M81.0 - Age-related osteoporosis without current pathological fracture Category: Medical Plan: Continue vitamin D3 weight-bearing exercises. Patient will start alendronate 70 mg weekly side effects discussed with the patient. Medications: New alendronate 70 mg PO QWEEK 14 tabs 3RF Ozempic (semaglutide) 2 mg (0.75 mL) subcut QWEEK 9 mL 1RF NS Changed From celecoxib 200 mg PO DAILY 90 caps 3RF To celecoxib 200 mg PO DAILY PRN From baclofen 10 mg PO BEDTIME 30 tabs 3RF To baclofen 10 mg PO BEDTIME PRN From metoprolol succinate ER 12.5 mg (1/2 x 25 mg) PO DAILY 45 tabs 3RF To metoprolol succinate ER 50 mg PO DAILY
== END 2025-09-05 15:05 | disposition home or self-care (01) ==
PROVIDERS: PCP Internal Medicine; Visit Provider Internal Medicine
DX: I47.10 Supraventricular tachycardia, unspecified (principal); E78.5 Hyperlipidemia, unspecified; M81.0 Age-related osteoporosis without current pathological fracture

== ENCOUNTER → 2025-09-22 13:22 | Outpatient (REF) | payer OTHER, SELFPAY | LOC: HO.SL 13:22 | PROVIDERS: PCP Internal Medicine; Visit Provider Internal Medicine | DX: I48.91 Unspecified atrial fibrillation (principal); G47.33 Obstructive sleep apnea (adult) (pediatric) | CPT/HCPCS: 95806 ==

== ENCOUNTER → 2025-09-22 13:42 | Outpatient (BNV) | payer OTHER, SELFPAY | PROVIDERS: PCP Internal Medicine; Visit Provider Psychiatry & Neurology Neurology | DX: G47.33 Obstructive sleep apnea (adult) (pediatric) (principal) | CPT/HCPCS: 95806 ==